=== PATIENT | female | born 1955 | race American Indian/Alaskan Native ===

== ENCOUNTER 2016-12-12 17:19 | Emergency (ER) | payer MEDICAID ==
--- NOTE | 2016-12-12 18:56 | Cat Scan Report ---
FINAL REPORT EXAM: CT HEAD/BRAIN WO CON HISTORY: head injury TECHNIQUE: CT examination of the head without IV contrast PRIORS: None. FINDINGS: No acute air-fluid level visualized in the included air-filled sinuses. Bone windows demonstrate no acute fracture. The brain is without mass, mass effect, hemorrhage, or acute infarct. There is no extra-axial intracranial bleed, brain bleed, or midline shift. The ventricles and sulci are age-appropriate. IMPRESSION: No acute CVA, intracranial bleed, or brain mass
[2016-12-12 19:27] LABS: Bilirubin,Urine NEG (Negative); Blood,Urine NEG (Negative); Ketones,Urine NEG (Negative); Leukocyte Esterase,Urine NEG (Negative); Nitrite,Urine NEG (Negative); Protein,Urine <15 mg/dL mg/dL (Negative); WBC,Urine < 1.0 /HPF (0.0-6.0)
[2016-12-12 19:47] LABS: Basophils % (Auto) 0.6 % (0.0-1.8); Eosinophils % (Auto) 2.1 % (0.0-4.3); Hematocrit 47.2 % (30.3-42.9); Hemoglobin 15.6 gm/dl (10.1-14.3); Mean Corpuscular HGB Conc 33 % (30-34); Mean Corpuscular Hemoglobin 30 pg (28-32); Mean Corpuscular Volume 91 fl (79-97); Platelet Count 221 K/mm3 (140-440); Red Blood Count 5.17 M/mm3 (3.65-5.03); Red Cell Distribution Width 14.3 % (13.2-15.2); White Blood Count 10.9 K/mm3 (4.5-11.0)
[2016-12-12 20:07] LABS: Alanine Aminotransferase 11 units/L (7-56); Albumin 4.4 g/dL (3.9-5); Albumin/Globulin Ratio 1.5 %; Alkaline Phosphatase 95 units/L (35-129); Anion Gap 16 mmol/L; BUN/Creatinine Ratio 22; Blood Urea Nitrogen 13 mg/dL (7-17); Calcium 9.7 mg/dL (8.4-10.2); Carbon Dioxide 27 mmol/L (22-30); Chloride 103.5 mmol/L (98-107); Glucose 93 mg/dL (65-100); Potassium 4.3 mmol/L (3.6-5.0); Sodium 142 mmol/L (137-145); Total Protein 7.4 g/dL (6.3-8.2)
[2016-12-12] MEDS ORDERED: TORADOL IM ONE (21:35)
[2016-12-12] MEDS ORDERED: ROBAXIN PO ONE (22:00)
--- NOTE | 2016-12-12 23:06 | Emergency Department Report ---
ED Fall HPI - General Chief Complaint: Fall Stated Complaint: HIP PAIN Time Seen by Provider: 12/12/16 20:43 Source: patient Mode of arrival: Stretcher - History of Present Illness Initial Comments: This 61-year-old female presents to ER with complaints of falling. This happened yesterday and today. She says her right hip give out on her and she fell to the ground. She struck the back of her head, no LOC. Patient has history of asthma, history of cancer of her uterus. She is a chronic smoker, I counseled her about smoking cessation. MD Complaint: fall -: Sudden (she fell yesterday and she also felt today just prior to arrival) Fall From: standing (walking) When Fall Occurred: recurrent falls Fall Witnessed: no Place Fall Occurred: home Loss of Consciousness: none Prolonged Down Time?: no Symptoms Prior to Fall: other (her right hip felt weak and unable to bear her weight so she fell) Location: head, other (right hip) Location - Extremities: Right: Leg (right hip) Severity: moderate Severity scale (0 -10): 8 Quality: aching Associated Symptoms: headache, weakness, shortness of breath. denies: numbness , abdominal pain, hematuria, lightheaded, confusion - Related Data Previous Rx's Medication Instructions Recorded Last Taken Type Diclofenac Potassium [Cambia] 50 mg PO TID #21 powd.pack 12/13/16 Unknown Rx Methocarbamol [Robaxin-750] 1,500 mg PO TID #30 tablet 12/13/16 Unknown Rx traMADol [Ultram] 50 mg PO Q6HR PRN #12 tablet 12/13/16 Unknown Rx Allergies Allergy/AdvReac Type Severity Reaction Status Date / Time codeine Allergy Hives Verified 12/12/16 18:04 ED Review of Systems ROS: Stated complaint: HIP PAIN Other details as noted in HPI Comment: All other systems reviewed and negative Constitutional: see HPI, weakness. denies: chills, diaphoresis, fever, malaise Eyes: denies: eye pain, eye discharge, vision change ENT: denies: ear pain, throat pain, dental pain, hearing loss Respiratory: cough (history of asthma, patient also smokes), shortness of breath Cardiovascular: denies: chest pain, palpitations, dyspnea on exertion, edema, syncope, paroxysmal nocturnal dyspnea Endocrine: no symptoms reported Gastrointestinal: denies: abdominal pain, nausea, vomiting, diarrhea, constipation, hematemesis Genitourinary: denies: dysuria, frequency, hematuria Musculoskeletal: as per HPI, other (right hip joint pain) Skin: denies: change in color, change in hair/nails, pruritus Neurological: weakness ED Past Medical Hx - Past Medical History Previous Medical History?: Yes Hx Asthma: Yes Hx COPD: Yes Additional medical history: pacer - Surgical History Past Surgical History?: Yes Hx Pacemaker: Yes - Social History Smoking Status: Never Smoker Substance Use Type: None - Medications Home Medications: Home Medications Medication Instructions Recorded Confirmed Last Taken Type Diclofenac Potassium [Cambia] 50 mg PO TID #21 powd.pack 12/13/16 Unknown Rx Methocarbamol [Robaxin-750] 1,500 mg PO TID #30 tablet 12/13/16 Unknown Rx traMADol [Ultram] 50 mg PO Q6HR PRN #12 tablet 12/13/16 Unknown Rx ED Physical Exam - General Limitations: No Limitations General appearance: in distress (moderate distress) - Head Head exam: Present: atraumatic, normocephalic - Eye Eye exam: Present: normal appearance, PERRL, EOMI. Absent: scleral icterus, conjunctival injection, nystagmus - ENT ENT exam: Present: normal exam, normal orophraynx, mucous membranes moist - Neck Neck exam: Present: normal inspection, full ROM. Absent: tenderness, meningismus, lymphadenopathy - Respiratory Respiratory exam: Present: normal lung sounds bilaterally. Absent: respiratory distress, wheezes, rales, rhonchi, stridor, chest wall tenderness, accessory muscle use, decreased breath sounds, prolonged expiratory - Cardiovascular Cardiovascular Exam: Present: regular rate, normal heart sounds. Absent: normal rhythm, bradycardia, tachycardia, systolic murmur, diastolic murmur, rubs - GI/Abdominal GI/Abdominal exam: Present: soft, normal bowel sounds. Absent: distended, tenderness, guarding, diminished bowel sounds, hyperactive bowel sounds, hypoactive bowel sounds, organomegaly - Rectal Rectal exam: Present: deferred - Expanded Lower Extremity Exam Right Hip exam: Present: normal inspection, tenderness. Absent: full ROM, swelling, abrasion, ecchymosis, deformity, crepidus, dislocation, erythema, external rotation, internal rotation, shortening, pelvic stability Upper Leg exam: Present: normal inspection. Absent: full ROM, tenderness, swelling, abrasion, laceration, ecchymosis, deformity, crepidus, dislocation Knee exam: Present: normal inspection, full ROM, full knee extension. Absent: tenderness, swelling, abrasion, laceration, ecchymosis, deformity, crepidus, dislocation, erythema, effusion, pain w/ pronation/supination, posterior draw sign, pain/laxity with valgus, pain/laxity with varus Lower Leg exam: Present: normal inspection, full ROM. Absent: tenderness, swelling, laceration, ecchymosis, deformity, crepidus Ankle exam: Present: normal inspection, full ROM. Absent: tenderness, abrasion , laceration, ecchymosis Foot/Toe exam: Present: normal inspection, full ROM. Absent: tenderness, swelling, abrasion, laceration, ecchymosis, dislocation, erythema, amputation, puncture wound Neuro vascular tendon exam: Present: no vascular compromise. Absent: pulse deficit, abnormal cap refill, motor deficit, sensory deficit, tendon deficit - Back Exam Back exam: Present: normal inspection, full ROM. Absent: tenderness, CVA tenderness (L), muscle spasm, paraspinal tenderness - Neurological Exam Neurological exam: Present: alert, oriented X3, CN II-XII intact, motor sensory deficit ED Course Vital Signs 12/12/16 12/12/16 12/12/16 18:04 19:12 19:15 Temperature 98.4 F Pulse Rate 70 Respiratory 16 Rate Blood Pressure 146/94 O2 Sat by Pulse 95 96 97 Oximetry 12/12/16 12/12/16 12/12/16 19:31 19:45 20:01 Temperature Pulse Rate Respiratory Rate Blood Pressure O2 Sat by Pulse 96 96 85 Oximetry 12/12/16 12/12/16 12/12/16 20:15 20:31 20:45 Temperature Pulse Rate Respiratory Rate Blood Pressure O2 Sat by Pulse 95 95 97 Oximetry 12/12/16 12/12/16 12/12/16 21:01 21:15 21:31 Temperature Pulse Rate Respiratory Rate Blood Pressure O2 Sat by Pulse 94 97 97 Oximetry 12/12/16 12/12/16 12/12/16 21:45 22:01 22:15 Temperature Pulse Rate Respiratory Rate Blood Pressure O2 Sat by Pulse 96 95 95 Oximetry 12/12/16 12/12/16 12/12/16 22:31 22:45 23:00 Temperature Pulse Rate Respiratory Rate Blood Pressure 119/82 133/81 O2 Sat by Pulse 97 97 93 Oximetry 12/12/16 23:15 Temperature Pulse Rate Respiratory Rate Blood Pressure 133/81 O2 Sat by Pulse 96 Oximetry ED Medical Decision Making - Lab Data Result diagrams: 12/12/16 19:31 12/12/16 19:31 - Radiology Data Radiology results: report reviewed, image reviewed Critical Care Time: No Critical care attestation.: If time is entered above; I have spent that time in minutes in the direct care of this critically ill patient, excluding procedure time. ED Disposition Clinical Impression: Fall, Hip pain, right Disposition: - TO HOME OR SELFCARE Is pt being admited?: No Does the pt Need Aspirin: No Condition: Stable Instructions: Fall Prevention (ED), Arthralgia (ED) Additional Instructions: Floor with her primary care. Use a walker to assist your gait Prescriptions: Diclofenac Potassium [Cambia] 50 mg PO TID #21 powd.pack Methocarbamol [Robaxin-750] 1,500 mg PO TID #30 tablet traMADol [Ultram] 50 mg PO Q6HR PRN #12 tablet PRN Reason: Pain Referrals: PRIMARY CARE,MD [Primary Care Provider] - 3-5 Days Time of Disposition: 00:26
[2016-12-12 23:19] VITALS: BP 133/81
--- NOTE | 2016-12-13 10:16 | XRay Report ---
PORTABLE CHEST INDICATION: Cough. COMPARISON: None similar. FINDINGS: Portable, frontal chest radiographs, 2 images demonstrate a 1.7 x 1.1 cm ovoid soft tissue density in the left lower lung, projecting along the left heart border. Otherwise clear, hyperexpanded lungs. Normal cardiomediastinal silhouette. Left-sided pacemaker with dual-chamber leads. Intact bones. CONCLUSION: Left lower lung mass/nodule in this patient with possible COPD and left-sided pacemaker, as described. Direct comparison with prior chest imaging would be helpful, if available. Otherwise further evaluation with contrast enhanced chest CT recommended as neoplasm not excluded. Thank you for the opportunity to participate in this patient's care.
--- NOTE | 2016-12-13 12:02 | XRay Report ---
RIGHT HIP, 2 views: History: Right hip pain. The bony architecture is intact without evidence of fracture or dislocation. No significant soft tissue abnormality is seen. IMPRESSION: Right hip within normal limits.
== END 2016-12-13 00:35 | disposition home or self-care (01) ==
LOC: ED 17:19
DX: M25.551 Pain in right hip (principal); J45.909 Unspecified asthma, uncomplicated; H44.9 Unspecified disorder of globe
CPT/HCPCS: 36415; 70450; 71010; 73502; 80053; 81001; 85025; 96372; 99285; J1885

== ENCOUNTER 2016-12-23 14:25 | Emergency (ER) | payer MEDICAID ==
--- NOTE | 2016-12-23 14:55 | Emergency Department Report ---
Chief Complaint: Dyspnea/Respdistress Stated Complaint: CALL BACK/SOB - HPI History of Present Illness: 61 year old female presents to ED with abnormal CXR. patient states she was called back to ED from previous visit for abnormal CXR. patient states she previously came to ED 2 weeks ago for SOB. patient is stable, neurologically intact and in no acute distress. - ROS Review of Systems: see HPI - Exam Vital Signs: Vital Signs 12/23/16 14:40 Temperature 97.4 F L Pulse Rate 78 Respiratory 18 Rate Blood Pressure 139/96 O2 Sat by Pulse 97 Oximetry Physical Exam: General: no acute distress MSE screening note: Focused history and physical exam performed. Due to findings the following was ordered: CT chest with contrast per radiologist due to abnormal CXR labs EKG ED Medical Decision Making - Radiology Data Radiology results: pending - Medical Decision Making patient is stable, neurologically intact and in no acute distress. ED Disposition for MSE Condition: Stable
[2016-12-23 15:32] LABS: Anion Gap 19 mmol/L; BUN/Creatinine Ratio 13; Basophils % (Auto) 0.4 % (0.0-1.8); Blood Urea Nitrogen 9 mg/dL (7-17); Carbon Dioxide 23 mmol/L (22-30); Chloride 104.3 mmol/L (98-107); Eosinophils % (Auto) 2.3 % (0.0-4.3); Glucose 79 mg/dL (65-100); Hematocrit 45.9 % (30.3-42.9); Hemoglobin 15.5 gm/dl (10.1-14.3); Mean Corpuscular HGB Conc 34 % (30-34); Mean Corpuscular Hemoglobin 31 pg (28-32); Mean Corpuscular Volume 91 fl (79-97); Platelet Count 217 K/mm3 (140-440); Potassium 4.1 mmol/L (3.6-5.0); Red Blood Count 5.04 M/mm3 (3.65-5.03); Red Cell Distribution Width 14.4 % (13.2-15.2); Sodium 142 mmol/L (137-145); White Blood Count 9.8 K/mm3 (4.5-11.0)
--- NOTE | 2016-12-23 15:54 | XRay Report ---
CHEST 2 VIEWS INDICATION: Previous abnormal x-ray. Left lower lung nodule. COMPARISON: 12/12/2016 FINDINGS: PA and lateral chest radiographs again demonstrate approximately 1.5 x 1 cm left lower lung nodule projecting along the left heart border on the frontal view, possibly located within the lingula on the lateral projection. Hyperexpanded clear remainder lungs/COPD. No pleural effusions or CHF. Normal cardiomediastinal silhouette. Slight aortic knob calcifications. Stable left pacemaker with dual-chamber leads. Osteopenia. CONCLUSION: Left lower lung mass/nodule again noted in this patient with COPD and left sided pacemaker, as described. Direct comparison with more remote relevant imaging, if available, would be very helpful. Thank you for the opportunity to participate in this patient's care.
[2016-12-23] MEDS ORDERED: NACL ONE (15:56)
--- NOTE | 2016-12-23 21:30 | Emergency Department Report ---
ED General Adult HPI - General Chief complaint: Dyspnea/Respdistress Stated complaint: CALL BACK/SOB Time Seen by Provider: 12/23/16 20:20 Source: patient Mode of arrival: Ambulatory Limitations: Physical Limitation - History of Present Illness Initial comments: Pt is a 61 yo female her for a call back for an abnormal chest xray 2 weeks . Pt states she is a former smoker of 40 pack yrs and pt states she stopped drinking alcohol 10 yrs ago. Pt states she has been coughing. Pt denied any weight loss or night sweats. Pt states she has not had fever. Pt has a pacemaker. Severity scale (0 -10): 8 Improves with: none Associated Symptoms: denies other symptoms - Related Data Home Medications Medication Instructions Recorded Confirmed Last Taken Losartan [Cozaar] 100 mg PO QDAY 12/23/16 12/23/16 12/23/16 Allergies Allergy/AdvReac Type Severity Reaction Status Date / Time codeine Allergy Hives Verified 12/12/16 18:04 ED Review of Systems ROS: Stated complaint: CALL BACK/SOB Other details as noted in HPI Eyes: denies: eye pain, eye discharge, vision change ENT: denies: ear pain, throat pain Respiratory: cough Cardiovascular: denies: chest pain, palpitations Endocrine: no symptoms reported Gastrointestinal: denies: abdominal pain Musculoskeletal: denies: back pain, joint swelling, arthralgia Skin: as per HPI ED Past Medical Hx - Past Medical History Previous Medical History?: Yes Hx Asthma: Yes Hx COPD: Yes Additional medical history: pacer - Surgical History Past Surgical History?: Yes Hx Pacemaker: Yes Additional Surgical History: Hysterectomy - Social History Smoking Status: Current Every Day Smoker Substance Use Type: Prescribed - Medications Home Medications: Home Medications Medication Instructions Recorded Confirmed Last Taken Type Losartan [Cozaar] 100 mg PO QDAY 12/23/16 12/23/16 12/23/16 History ED Physical Exam - General Limitations: Physical Limitation General appearance: alert - Head Head exam: Present: atraumatic, normocephalic - Eye Eye exam: Present: normal appearance - ENT ENT exam: Present: mucous membranes moist - Neck Neck exam: Present: normal inspection - Respiratory Respiratory exam: Present: normal lung sounds bilaterally. Absent: respiratory distress - Cardiovascular Cardiovascular Exam: Present: regular rate, normal rhythm. Absent: systolic murmur, diastolic murmur, rubs, gallop - GI/Abdominal GI/Abdominal exam: Present: soft, normal bowel sounds - Neurological Exam Neurological exam: Present: alert, oriented X3, CN II-XII intact, normal gait - Skin Skin exam: Present: other (left chest wall with implanted pacer device) ED Course Vital Signs 12/23/16 12/23/16 12/23/16 14:40 19:46 20:00 Temperature 97.4 F L 98 F Pulse Rate 78 81 72 Respiratory 18 16 18 Rate Blood Pressure 139/96 Blood Pressure 138/98 126/80 [Right] O2 Sat by Pulse 97 98 98 Oximetry 12/23/16 12/23/16 21:00 22:35 Temperature Pulse Rate 61 70 Respiratory 18 20 Rate Blood Pressure Blood Pressure 142/89 135/76 [Right] O2 Sat by Pulse 98 98 Oximetry ED Medical Decision Making - Lab Data Result diagrams: 12/23/16 14:59 12/23/16 14:59 Critical care attestation.: If time is entered above; I have spent that time in minutes in the direct care of this critically ill patient, excluding procedure time. ED Disposition Clinical Impression: Abnormal chest xray, Bone island Disposition: DC-01 TO HOME OR SELFCARE Is pt being admited?: No Condition: Stable Additional Instructions: be sure to follow up with a primary care doctor; return sooner if worse or if further concerns; you will need further eval of your liver Referrals: JOSH THOMAS MD [Staff Physician] - 3-5 Days PRIMARY CARE, [Primary Care Provider] - 3-5 Days
--- NOTE | 2016-12-23 21:37 | Cat Scan Report ---
FINAL REPORT PROCEDURE: CT CHEST W CON TECHNIQUE: Computerized axial tomography of the chest was performed during the IV injection of iodinated nonionic contrast. HISTORY: abnormal CXR COMPARISON: No prior studies are available for comparison. TECHNICAL QUALITY: Satisfactory. FINDINGS: Heart and pericardium: Normal. Thoracic aorta: Normal. Pulmonary vasculature: Normal. Lymph nodes: No enlarged thoracic lymph nodes. Lungs: Normal. Pleural space: No effusion, thickening, or pneumothorax. Musculoskeletal structures: A well-defined the sclerotic density measuring 6 millimeters x 12 millimeters is noted in the anterior and of left 6th rib consistent with a bone island.. Upper abdominal structures: There is mild degree nodularity to the hepatic outlines.. IMPRESSION: No acute abnormality. A 6 millimeter x 12 millimeter sclerotic density in the anterior end of left 6th rib is consistent with a bone island. Mild degree nodularity of the outlines of liver is noted. Please correlate with clinical findings to rule out cirrhosis.
[2016-12-24 00:23] VITALS: BP 135/76
== END 2016-12-23 23:18 | disposition home or self-care (01) ==
LOC: ED 14:25
DX: A75.3 Typhus fever due to Rickettsia tsutsugamushi (principal); J45.909 Unspecified asthma, uncomplicated; J44.9 Chronic obstructive pulmonary disease, unspecified; F17.200 Nicotine dependence, unspecified, uncomplicated
CPT/HCPCS: 36415; 71020; 71260; 80048; 84484; 85025; 93005; 93010; 99284; Q9967

== ENCOUNTER 2017-01-25 13:00 | Emergency (ER) | payer MEDICAID ==
[2017-01-25 14:35] LABS: Basophils % (Auto) 0.4 % (0.0-1.8); Eosinophils % (Auto) 3.3 % (0.0-4.3); Hematocrit 45.5 % (30.3-42.9); Hemoglobin 15.6 gm/dl (10.1-14.3); Mean Corpuscular HGB Conc 34 % (30-34); Mean Corpuscular Hemoglobin 31 pg (28-32); Mean Corpuscular Volume 90 fl (79-97); Platelet Count 261 K/mm3 (140-440); Red Blood Count 5.04 M/mm3 (3.65-5.03); White Blood Count 10.1 K/mm3 (4.5-11.0)
[2017-01-25 14:36] LABS: Anion Gap 17 mmol/L; BUN/Creatinine Ratio 13; Blood Urea Nitrogen 9 mg/dL (7-17); Calcium 9.7 mg/dL (8.4-10.2); Carbon Dioxide 25 mmol/L (22-30); Chloride 102.6 mmol/L (98-107); Glucose 90 mg/dL (65-100); Potassium 4.1 mmol/L (3.6-5.0); Sodium 140 mmol/L (137-145)
--- NOTE | 2017-01-25 14:48 | XRay Report ---
FINAL REPORT PROCEDURE: XR CHEST ROUTINE 2V TECHNIQUE: PA and lateral views HISTORY: sob/cough COMPARISON: Contrast-enhanced CT of the chest 12/23/2016 FINDINGS: Radiodensity projecting over left lower lobe is likely sclerosis previously noted on CT of the anterior left 6th rib. Emphysema is noted. There is an intracardiac device in place. The heart is normal in size. There is no evident pneumothorax or pleural fluid. Mild degenerative changes of the dorsal spine without focal bony abnormality is seen. IMPRESSION: Pulmonary emphysema.
[2017-01-25 15:28] LABS: Bilirubin,Urine NEG (Negative); Blood,Urine NEG (Negative); Ketones,Urine NEG (Negative); Leukocyte Esterase,Urine TR (Negative); Mucus,Urine FEW /HPF; Nitrite,Urine NEG (Negative); Protein,Urine <15 mg/dL mg/dL (Negative); Urobilinogen,Urine < 2.0 mg/dL (<2.0)
[2017-01-25] MEDS ORDERED: PROVENTIL IH ONE (19:38)
[2017-01-25] MEDS ORDERED: LIDOCAINE VISCOUS 2% PO ONE (22:22)
[2017-01-25] MEDS ORDERED: TYLENOL PO ONE (22:22)
[2017-01-25] MEDS ORDERED: MOTRIN PO ONE (22:22)
--- NOTE | 2017-01-25 22:31 | Emergency Department Report ---
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 Patient reports pacemaker is placed 6 months ago at another hospital secondary to "slow heart rate." Patient presents to the ER with complaint of throat pain, left-sided neck pain, adenopathy, cough, mucus production. Patient also complains of generalized body aches, myalgias and arthralgias. Symptoms have been present for 3 days. They're constant. They do not radiate anywhere. They have no exacerbating or relieving factors. Patient denies DVT and pulmonary embolus risk factors. MD Complaint: cough, sore throat, rhinorrhea, nasal congestion, sinus pain -: Gradual, days(s) Consistency: constant Improves With: nothing Worsens With: nothing Associated Symptoms: myalgias, rhinorrhea, nasal congestion, sore throat, cough , shortness of breath. denies: chest pain, abdominal pain, nausea, vomiting, diarrhea, dysuria, rash, confusion, right sweats, weight loss, epistaxis, hoarseness - Related Data Home Medications Medication Instructions Recorded Confirmed Last Taken Losartan [Cozaar] 100 mg PO QDAY 12/23/16 12/23/16 12/23/16 Previous Rx's Medication Instructions Recorded Last Taken Type Acetaminophen [Tylenol Arthritis] 650 mg PO Q6HR PRN #30 tablet.er 01/25/17 Unknown Rx Albuterol Sulfate [Proair 90 mcg IH Q4HR PRN #2 aer.pow.ba 01/25/17 Unknown Rx Respiclick] Benzonatate [Tessalon Perles] 100 mg PO Q8HR PRN #30 capsule 01/25/17 Unknown Rx Fluticasone [Flonase] 1 spray NS QDAY #1 bottle 01/25/17 Unknown Rx Ibuprofen [Motrin] 600 mg PO Q8H PRN #30 tablet 01/25/17 Unknown Rx Ipratropium [place] [Atrovent Hfa] 12.9 gm IH Q4HR #2 hfa.aer.ad 01/25/17 Unknown Rx Allergies Allergy/AdvReac Type Severity Reaction Status Date / Time codeine Allergy Hives Verified 12/12/16 18:04 ED Review of Systems ROS: Stated complaint: SORE THROAT Other details as noted in HPI ED Past Medical Hx - Past Medical History Hx Asthma: Yes Hx COPD: Yes Additional medical history: pacer - Surgical History Hx Pacemaker: Yes Additional Surgical History: Hysterectomy - Social History Smoking Status: Former Smoker - Medications Home Medications: Home Medications Medication Instructions Recorded Confirmed Last Taken Type Losartan [Cozaar] 100 mg PO QDAY 12/23/16 12/23/16 12/23/16 History Acetaminophen [Tylenol Arthritis] 650 mg PO Q6HR PRN #30 tablet.er 01/25/17 Unknown Rx Albuterol Sulfate [Proair 90 mcg IH Q4HR PRN #2 aer.pow.ba 01/25/17 Unknown Rx Respiclick] Benzonatate [Tessalon Perles] 100 mg PO Q8HR PRN #30 capsule 01/25/17 Unknown Rx Fluticasone [Flonase] 1 spray NS QDAY #1 bottle 01/25/17 Unknown Rx Ibuprofen [Motrin] 600 mg PO Q8H PRN #30 tablet 01/25/17 Unknown Rx Ipratropium [place] [Atrovent Hfa] 12.9 gm IH Q4HR #2 hfa.aer.ad 01/25/17 Unknown Rx ED Physical Exam - General Limitations: No Limitations General appearance: alert, in no apparent distress - Head Head exam: Present: atraumatic, normocephalic - Eye Eye exam: Present: normal appearance, PERRL, EOMI. Absent: nystagmus - ENT ENT exam: Present: normal exam, normal orophraynx, mucous membranes moist, TM's normal bilaterally, normal external ear exam - Neck Neck exam: Present: normal inspection, full ROM, lymphadenopathy. Absent: tenderness, meningismus - Respiratory Respiratory exam: Present: normal lung sounds bilaterally. Absent: respiratory distress, wheezes, rales, rhonchi, stridor, chest wall tenderness - Cardiovascular Cardiovascular Exam: Present: regular rate, normal rhythm, normal heart sounds. Absent: systolic murmur, diastolic murmur, rubs, gallop - GI/Abdominal GI/Abdominal exam: Present: soft, normal bowel sounds. Absent: distended, tenderness, guarding, rebound, rigid, pulsatile mass - Extremities Exam Extremities exam: Present: normal inspection, full ROM, normal capillary refill. Absent: pedal edema, joint swelling, calf tenderness - Back Exam Back exam: Present: normal inspection, full ROM. Absent: tenderness, CVA tenderness (R), paraspinal tenderness, vertebral tenderness - Neurological Exam Neurological exam: Present: alert, oriented X3, CN II-XII intact, other ( Extraocular movements intact. Tongue midline. No facial droop. Facial sensation intact to light touch in the V1, V2, V3 distribution bilaterally. 5 and 5 strength in 4 extremities.. Sensation is intact to light touch in 4 extremities.). Absent: motor sensory deficit - Psychiatric Psychiatric exam: Present: normal affect, normal mood - Skin Skin exam: Present: warm, dry, intact, normal color. Absent: rash ED Course Vital Signs 01/25/17 01/25/17 01/25/17 13:20 19:33 19:59 Temperature 98.4 F 98.2 F Pulse Rate 94 H 89 Pulse Rate [ 78 Anterior Bilateral Throughout] Respiratory 24 14 Rate Respiratory 19 Rate [Anterior Bilateral Throughout] Blood Pressure 113/82 126/89 O2 Sat by Pulse 93 95 Oximetry 01/25/17 20:16 Temperature Pulse Rate Pulse Rate [ 89 Anterior Bilateral Throughout] Respiratory Rate Respiratory 18 Rate [Anterior Bilateral Throughout] Blood Pressure O2 Sat by Pulse Oximetry ED Medical Decision Making - Lab Data Result diagrams: 01/25/17 13:56 01/25/17 13:56 Vital Signs 01/25/17 01/25/17 01/25/17 13:20 19:33 19:59 Temperature 98.4 F 98.2 F Pulse Rate 94 H 89 Pulse Rate [ 78 Anterior Bilateral Throughout] Respiratory 24 14 Rate Respiratory 19 Rate [Anterior Bilateral Throughout] Blood Pressure 113/82 126/89 O2 Sat by Pulse 93 95 Oximetry 01/25/17 20:16 Temperature Pulse Rate Pulse Rate [ 89 Anterior Bilateral Throughout] Respiratory Rate Respiratory 18 Rate [Anterior Bilateral Throughout] Blood Pressure O2 Sat by Pulse Oximetry Lab Results 01/25/17 01/25/17 01/25/17 Range/Units 13:56 13:56 15:12 WBC 10.1 (4.5-11.0) K/mm3 RBC 5.04 H (3.65-5.03) M/mm3 Hgb 15.6 H (10.1-14.3) gm/dl Hct 45.5 H (30.3-42.9) % MCV 90 (79-97) fl MCH 31 (28-32) pg MCHC 34 (30-34) % RDW 14.0 (13.2-15.2) % Plt Count 261 (140-440) K/mm3 Lymph % (Auto) 18.7 (13.4-35.0) % [place]aines % (Auto) 5.4 (0.0-7.3) % Eos % (Auto) 3.3 (0.0-4.3) % Baso % (Auto) 0.4 (0.0-1.8) % Lymph # 1.9 (1.2-5.4) K/mm3 Haines # 0.5 (0.0-0.8) K/mm3 Eos # 0.3 (0.0-0.4) K/mm3 Baso # 0.0 (0.0-0.1) K/mm3 Seg Neutrophils % 72.2 H (40.0-70.0) % Seg Neutrophils # 7.3 (1.8-7.7) K/mm3 Sodium 140 (137-145) mmol/L Potassium 4.1 (3.6-5.0) mmol/L Chloride 102.6 (98-107) mmol/L Carbon Dioxide 25 (22-30) mmol/L Anion Gap 17 mmol/L BUN 9 (7-17) mg/dL Creatinine 0.7 (0.7-1.2) mg/dL Estimated GFR > 60 ml/min BUN/Creatinine Ratio 13 % Glucose 90 (65-100) mg/dL Calcium 9.7 (8.4-10.2) mg/dL Urine Color Yellow (Yellow) Urine Turbidity Clear (Clear) Urine pH 5.0 (5.0-7.0) Ur Specific [place] 1.015 (1.003-1.030) Urine Protein <15 mg/dl (Negative) mg/dL Urine Glucose (UA) Neg (Negative) mg/dL Urine Ketones Neg (Negative) mg/dL Urine Blood Neg (Negative) Urine Nitrite Neg (Negative) Urine Bilirubin Neg (Negative) Urine Urobilinogen < 2.0 (<2.0) mg/dL Ur Leukocyte Esterase Tr (Negative) Urine WBC (Auto) 1.0 (0.0-6.0) /HPF Urine RBC (Auto) 1.0 (0.0-6.0) /HPF U Epithel Cells (Auto) 4.0 (0-13.0) /HPF Urine Mucus Few /HPF - Radiology Data Radiology results: report reviewed, image reviewed X-ray of the chest is negative for acute disease, left-sided cardiac pacer is noted, hyperinflated lungs, no acute disease - Medical Decision Making Differential diagnosis, including without limited to: Bronchitis, pneumonia, influenza, influenza-like illness, COPD, asthma Assessment and plan: 61-year-old female with adenopathy, cough, sore throat, right-sided otalgia, resolved wheezing, mucus production Patient's history physical most likely consistent with bronchitis. She is not wheezing at this time. No pulmonary embolus or DVT risk factors. She is saturating well and protecting her airway and able to tolerate liquid feeds. Patient will be treated expectantly for bronchitis. Given that she is not wheezing at this time, I see no indication for steroids. Given x-ray findings, and lack of focal pulmonary findings, I don't believe the patient requires antibiotic therapy. Critical care attestation.: If time is entered above; I have spent that time in minutes in the direct care of this critically ill patient, excluding procedure time. ED Disposition Clinical Impression: Bronchitis Disposition: DC-01 TO HOME OR SELFCARE Is pt being admited?: No Does the pt Need Aspirin: No Condition: Stable Instructions: Acute Bronchitis (ED) Additional Instructions: Take the medications as directed. Follow up with her primary care doctor within the next [address] Emmanuel is a local primary care doctor. Avoid exposure to tobacco smoke and tobacco consumption. Follow up with the pulmonary /lung doctor within the next 4-[address] Lee is a local pulmonary doctor. Follow up with a bridge expert within the next 4-[address] Biggs is a local heart doctor. Symptoms of bronchitis, which I believe you have, typically take 4-6 weeks to completely resolve. Return to the ER right away with new pain, worsened pain, migration of pain, fevers, chills, lethargy, irritability, projectile vomiting, confusion, change in mental status, inability to tolerate liquid feeds. Referrals: PRIMARY CARE, [Primary Care Provider] - 3-5 Days LAKSHMI EMMANUEL MD [Staff Physician] - 3-5 Days DICKSON BIGGS MD [Staff Physician] - 3-5 Days CARIE BORGES MD [Staff Physician] - 3-5 Days
[2017-01-25] MEDS ORDERED: TESSALON PERLES PO ONE (22:49)
[2017-01-25 22:59] VITALS: BP 114/53
== END 2017-01-25 23:01 | disposition home or self-care (01) ==
LOC: ED 13:00
DX: J44.9 Chronic obstructive pulmonary disease, unspecified (principal); Z90.710 Acquired absence of both cervix and uterus; Z87.891 Personal history of nicotine dependence; Z88.5 Allergy status to narcotic agent
CPT/HCPCS: 36415; 71020; 80048; 81001; 85025; 87400; 94640

== ENCOUNTER 2017-05-10 10:29 | Emergency (ER) | payer MEDICAID ==
[2017-05-10 10:35] VITALS: BP 148/98
--- NOTE | 2017-05-10 13:05 | XRay Report ---
XRAY RIGHT HIP TWO VIEWS: 05/10/17 10:29:00 CLINICAL: Fall and right hip pain. COMPARISON 12/12/16 FINDINGS: No fracture or dislocation.Moderate osteoarthritis with narrowing of the superolateral joint space and superior acetabular eburnation. Small superior and inferior osteophytes. The pelvic bones are intact. Mild arthritis of the left hip. Normal soft tissues. IMPRESSION: Osteoarthritis and no apparent traumatic injury.
--- NOTE | 2017-05-10 13:12 | Emergency Department Report ---
ED Fall HPI - General Chief Complaint: Pain General Stated Complaint: RIGHT SIDE PAIN Time Seen by Provider: 05/10/17 11:16 Source: patient Mode of arrival: Ambulatory - History of Present Illness Initial Comments: Mrs. Rico is a 59-year-old female presents with a history of recurrent falls for the last 3 years. She uses a cane for gait instability. She fell 1-1/2 weeks ago onto her left side. She has right flank right hip pain. Worse with movement. Worse to touch. No numbness. No paresthesias. MD Complaint: fall -: week(s) (1.5) Fall From: standing When Fall Occurred: recurrent falls Fall Witnessed: no Place Fall Occurred: home Loss of Consciousness: none Prolonged Down Time?: no Symptoms Prior to Fall: none Location - Extremities: Right: Leg Severity: severe Context: tripped/slipped - Related Data Home Medications Medication Instructions Recorded Confirmed Last Taken Losartan [Cozaar] 100 mg PO QDAY 12/23/16 12/23/16 12/23/16 Previous Rx's Medication Instructions Recorded Last Taken Type Acetaminophen [Tylenol Arthritis] 650 mg PO Q6HR PRN #30 tablet.er 01/25/17 Unknown Rx Albuterol Sulfate [Proair 90 mcg IH Q4HR PRN #2 aer.pow.ba 01/25/17 Unknown Rx Respiclick] Benzonatate [Tessalon Perles] 100 mg PO Q8HR PRN #30 capsule 01/25/17 Unknown Rx Fluticasone [Flonase] 1 spray NS QDAY #1 bottle 01/25/17 Unknown Rx Ibuprofen [Motrin] 600 mg PO Q8H PRN #30 tablet 01/25/17 Unknown Rx Ipratropium [place] [Atrovent Hfa] 12.9 gm IH Q4HR #2 hfa.aer.ad 01/25/17 Unknown Rx HYDROcodone/APAP 5-325 [[place] 1 each PO Q6HR PRN #10 tablet 05/10/17 Unknown Rx 5/325] Allergies Allergy/AdvReac Type Severity Reaction Status Date / Time codeine Allergy Hives Verified 12/12/16 18:04 ED Review of Systems ROS: Stated complaint: RIGHT SIDE PAIN Other details as noted in HPI Constitutional: denies: chills, fever, malaise ENT: denies: throat pain Respiratory: denies: cough Cardiovascular: denies: chest pain Gastrointestinal: denies: abdominal pain, nausea, vomiting Genitourinary: denies: urgency, dysuria Neurological: denies: headache, weakness, paresthesias ED Past Medical Hx - Past Medical History Hx Asthma: Yes Hx COPD: Yes Additional medical history: pacer - Surgical History Hx Pacemaker: Yes Additional Surgical History: Hysterectomy - Social History Smoking Status: Never Smoker Substance Use Type: None - Medications Home Medications: Home Medications Medication Instructions Recorded Confirmed Last Taken Type Losartan [Cozaar] 100 mg PO QDAY 12/23/16 12/23/16 12/23/16 History Acetaminophen [Tylenol Arthritis] 650 mg PO Q6HR PRN #30 tablet.er 01/25/17 Unknown Rx Albuterol Sulfate [Proair 90 mcg IH Q4HR PRN #2 aer.pow.ba 01/25/17 Unknown Rx Respiclick] Benzonatate [Tessalon Perles] 100 mg PO Q8HR PRN #30 capsule 01/25/17 Unknown Rx Fluticasone [Flonase] 1 spray NS QDAY #1 bottle 01/25/17 Unknown Rx Ibuprofen [Motrin] 600 mg PO Q8H PRN #30 tablet 01/25/17 Unknown Rx Ipratropium [place] [Atrovent Hfa] 12.9 gm IH Q4HR #2 hfa.aer.ad 01/25/17 Unknown Rx HYDROcodone/APAP 5-325 [[place] 1 each PO Q6HR PRN #10 tablet 05/10/17 Unknown Rx 5/325] ED Physical Exam - General Limitations: Physical Limitation General appearance: alert, in no apparent distress - Head Head exam: Present: atraumatic, normocephalic - Eye Eye exam: Present: normal appearance - ENT ENT exam: Present: mucous membranes moist - Neck Neck exam: Present: normal inspection - Respiratory Respiratory exam: Present: normal lung sounds bilaterally. Absent: respiratory distress - Cardiovascular Cardiovascular Exam: Present: regular rate, normal rhythm. Absent: systolic murmur, diastolic murmur, rubs, gallop - GI/Abdominal GI/Abdominal exam: Present: soft, normal bowel sounds. Absent: distended, tenderness, guarding, rebound - Extremities Exam Extremities exam: Present: normal inspection, other (full range of motion right hip no tenderness able to weight-bear) - Back Exam Back exam: Present: normal inspection, CVA tenderness (R) (right flank hematoma) , other - Neurological Exam Neurological exam: Present: alert, oriented X3 - Psychiatric Psychiatric exam: Present: normal affect, normal mood - Skin Skin exam: Present: warm, dry, intact, normal color. Absent: rash ED Course Vital Signs 05/10/17 10:34 Temperature 97.8 F Pulse Rate 77 Respiratory 16 Rate Blood Pressure 148/98 [Right] O2 Sat by Pulse 98 Oximetry ED Medical Decision Making - Radiology Data Radiology results: report reviewed, image reviewed - Medical Decision Making Mrs. Avila presents with right hip pain and right flank hematoma after fall. History of recurrent falls for the past 3 years requiring cane for gait instability. patient has also osteoarthritis in the right hip without fracture. she has a right flank bruise contusion. Prescribed norco Critical care attestation.: If time is entered above; I have spent that time in minutes in the direct care of this critically ill patient, excluding procedure time. ED Disposition Clinical Impression: Osteoarthritis, Right hip pain, Contusion, flank, Recurrent falls Disposition: TO HOME OR SELFCARE Is pt being admited?: No Does the pt Need Aspirin: No Condition: Stable Instructions: Osteoarthritis (ED), Fall Prevention for Older Adults (ED) Prescriptions: HYDROcodone/APAP 5-325 [[place] 5/325] 1 each PO Q6HR PRN #10 tablet PRN Reason: Pain Referrals: DEMETRICE MAJOR MD [Staff Physician] - 3-5 Days [facility] [Outside] - 3-5 Days Time of Disposition: 13:14
== END 2017-05-10 13:21 | disposition home or self-care (01) ==
LOC: ED 10:29
DX: S30.1XXA Contusion of abdominal wall, initial encounter (principal); M25.551 Pain in right hip; M19.90 Unspecified osteoarthritis, unspecified site; J44.9 Chronic obstructive pulmonary disease, unspecified; Z95.1 Presence of aortocoronary bypass graft; Z88.6 Allergy status to analgesic agent; W18.30XA Fall on same level, unspecified, initial encounter; Y93.89 Activity, other specified; Y92.89 Other specified places as the place of occurrence of the external cause; Y99.8 Other external cause status
CPT/HCPCS: 99283

== ENCOUNTER 2017-06-02 19:01 | Emergency (ER) | payer MEDICAID ==
[2017-06-02 19:11] VITALS: BP 161/99
== END 2017-06-02 23:35 | disposition left against medical advice (07) ==
LOC: ED 19:01
DX: J00 Acute nasopharyngitis [common cold] (principal); Z53.21 Procedure and treatment not carried out due to patient leaving prior to being seen by health care provider

== ENCOUNTER 2017-08-16 18:26 | Emergency (ER) | payer MEDICAID ==
[2017-08-16] MEDS ORDERED: ASPIRIN PO ONE (18:38)
[2017-08-16 19:13] LABS: Basophils # (Auto) 0.1 K/mm3 (0.0-0.1); Basophils % (Auto) 0.7 % (0.0-1.8); Eosinophils # (Auto) 0.2 K/mm3 (0.0-0.4); Eosinophils % (Auto) 2.1 % (0.0-4.3); Hematocrit 46.4 % (30.3-42.9); Hemoglobin 15.7 gm/dl (10.1-14.3); Lymphocytes # (Auto) 3.3 K/mm3 (1.2-5.4); Lymphocytes % (Auto) 30.5 % (13.4-35.0); Mean Corpuscular HGB Conc 34 % (30-34); Mean Corpuscular Hemoglobin 30 pg (28-32); Mean Corpuscular Volume 90 fl (79-97); Monocytes # (Auto) 0.5 K/mm3 (0.0-0.8); Monocytes % (Auto) 4.9 % (0.0-7.3); Platelet Count 232 K/mm3 (140-440); Red Blood Count 5.17 M/mm3 (3.65-5.03); Red Cell Distribution Width 13.8 % (13.2-15.2)
[2017-08-16 19:30] LABS: BUN/Creatinine Ratio 20; Blood Urea Nitrogen 12 mg/dL (7-17); Calcium 9.9 mg/dL (8.4-10.2); Hemolysis Index 6
[2017-08-16] MEDS ORDERED: PROVENTIL IH ONE (20:24)
--- NOTE | 2017-08-16 20:29 | Emergency Department Report ---
ED Shortness of Breath HPI - General Chief Complaint: Chest Pain Stated Complaint: CHEST PAIN/SWOLLEN FEET Time Seen by Provider: 08/16/17 20:01 Source: patient Mode of arrival: Ambulatory Limitations: No Limitations - History of Present Illness Initial Comments: Ms Avila is a 62 year-old woman with hx of COPD, HTN who presents with various complaints, including cough. has been having nighttime cough for 2 weeks. Makes it hard to sleep. Non-productive. No fever. Also reports orthopnea, improves with sitting up. Some decreased appetite. gets alternating pedal edema, right now has swelling in her left foot. No calf swelling. Does get short of rbeath with walking as well, but this is chronic. Has bilateral chest pain when she coughs. No radiation. Has been seen at [facility] and is being worked-up for possible CHF, does not sound like she has had an Echo. As well has a pacemaker for "slow heart beat." MD Complaint: shortness of breath, cough, chest pain -: week(s) Severity: mild Quality: dull Consistency: other (with coughing) Worsens With: lying flat, coughing Known History Of: COPD, asthma Associated Symptoms: chest pain, orhopnia - Related Data Home Medications Medication Instructions Recorded Confirmed Last Taken Losartan [Cozaar] 100 mg PO QDAY 12/23/16 12/23/16 12/23/16 Previous Rx's Medication Instructions Recorded Last Taken Type Acetaminophen [Tylenol Arthritis] 650 mg PO Q6HR PRN #30 tablet.er 01/25/17 Unknown Rx Albuterol Sulfate [Proair 90 mcg IH Q4HR PRN #2 aer.pow.ba 01/25/17 Unknown Rx Respiclick] Benzonatate [Tessalon Perles] 100 mg PO Q8HR PRN #30 capsule 01/25/17 Unknown Rx Fluticasone [Flonase] 1 spray NS QDAY #1 bottle 01/25/17 Unknown Rx Ibuprofen [Motrin] 600 mg PO Q8H PRN #30 tablet 01/25/17 Unknown Rx Ipratropium [place] [Atrovent Hfa] 12.9 gm IH Q4HR #2 hfa.aer.ad 01/25/17 Unknown Rx HYDROcodone/APAP 5-325 [[place] 1 each PO Q6HR PRN #10 tablet 05/10/17 Unknown Rx 5/325] Allergies Allergy/AdvReac Type Severity Reaction Status Date / Time codeine Allergy Hives Verified 12/12/16 18:04 ED Review of Systems ROS: Stated complaint: CHEST PAIN/SWOLLEN FEET Other details as noted in HPI Comment: All other systems reviewed and negative Constitutional: denies: chills, fever Eyes: eye pain, eye discharge. denies: vision change ENT: ear pain, congestion. denies: throat pain Respiratory: cough, orthopnea, shortness of breath, SOB with exertion, wheezing Cardiovascular: chest pain, dyspnea on exertion, orthopnea, edema. denies: palpitations, syncope Gastrointestinal: denies: abdominal pain, nausea, diarrhea Genitourinary: denies: urgency, dysuria Musculoskeletal: joint swelling. denies: back pain, arthralgia Skin: denies: rash, lesions Neurological: denies: headache, weakness, paresthesias ED Past Medical Hx - Past Medical History Hx Hypertension: Yes Hx Asthma: Yes Hx COPD: Yes Additional medical history: pacer - Surgical History Hx Pacemaker: Yes Additional Surgical History: Hysterectomy - Social History Smoking Status: Current Every Day Smoker Substance Use Type: None - Medications Home Medications: Home Medications Medication Instructions Recorded Confirmed Last Taken Type Losartan [Cozaar] 100 mg PO QDAY 12/23/16 12/23/16 12/23/16 History Acetaminophen [Tylenol Arthritis] 650 mg PO Q6HR PRN #30 tablet.er 01/25/17 Unknown Rx Albuterol Sulfate [Proair 90 mcg IH Q4HR PRN #2 aer.pow.ba 01/25/17 Unknown Rx Respiclick] Benzonatate [Tessalon Perles] 100 mg PO Q8HR PRN #30 capsule 01/25/17 Unknown Rx Fluticasone [Flonase] 1 spray NS QDAY #1 bottle 01/25/17 Unknown Rx Ibuprofen [Motrin] 600 mg PO Q8H PRN #30 tablet 01/25/17 Unknown Rx Ipratropium [place] [Atrovent Hfa] 12.9 gm IH Q4HR #2 hfa.aer.ad 01/25/17 Unknown Rx HYDROcodone/APAP 5-325 [[place] 1 each PO Q6HR PRN #10 tablet 05/10/17 Unknown Rx 5/325] ED Physical Exam - General Limitations: No Limitations General appearance: alert, in no apparent distress - Head Head exam: Present: atraumatic, normocephalic - Eye Eye exam: Present: normal appearance, EOMI. Absent: conjunctival injection, nystagmus - ENT ENT exam: Present: normal exam, mucous membranes moist - Neck Neck exam: Present: normal inspection, other (no JVD). Absent: tenderness - Respiratory Respiratory exam: Present: normal lung sounds bilaterally, other (dry cough). Absent: respiratory distress, wheezes, rales - Cardiovascular Cardiovascular Exam: Present: regular rate, normal rhythm. Absent: systolic murmur, diastolic murmur, rubs, gallop - GI/Abdominal GI/Abdominal exam: Present: soft. Absent: distended, tenderness, guarding, rebound - Extremities Exam Extremities exam: Present: other (no calf ttp, left foot swelling just distal to medial malleolus, no bruising, negative homans sign, 2+ DP pulses bilaterally ) - Back Exam Back exam: Absent: tenderness, CVA tenderness (R) - Neurological Exam Neurological exam: Present: alert, oriented X3. Absent: motor sensory deficit - Psychiatric Psychiatric exam: Present: normal affect, normal mood - Skin Skin exam: Present: warm, dry, intact, normal color. Absent: rash ED Course Vital Signs 08/16/17 08/16/17 08/16/17 18:29 20:52 21:29 Temperature 98.1 F 98 F Pulse Rate 79 79 Pulse Rate [ 72 Posterior] Respiratory 18 19 Rate Respiratory 27 H Rate [Posterior ] Blood Pressure 126/81 Blood Pressure 130/85 [Left] O2 Sat by Pulse 97 97 Oximetry 08/16/17 21:39 Temperature Pulse Rate Pulse Rate [ 80 Posterior] Respiratory Rate Respiratory 20 Rate [Posterior ] Blood Pressure Blood Pressure [Left] O2 Sat by Pulse Oximetry ED Medical Decision Making - Lab Data Result diagrams: 08/16/17 18:49 08/16/17 18:49 - EKG Data 1846: HR 70, atrial paces, normal axis, intervals wnl, no St changes concerning for acute ischemia - Radiology Data Radiology results: report reviewed EXAM: XR CHEST ROUTINE 2V HISTORY: dyspnea TECHNIQUE: Chest two views PA and lateral PRIORS: Comparison is January 25, [address] of December 23, 2016 FINDINGS: There is a wedge-shaped opacity at the left lung base unchanged from prior exam consistent with an area of chronic atelectasis as demonstrated on the prior CT. Two lead pacemaker identified lead wires intact. No acute pulmonary infiltrate identified. No pleural fluid collection seen. Mild scarring noted at the right lung base. Lungs are hyperinflated with flattening of the diaphragm which may indicate underlying COPD IMPRESSION: Findings suggestive of COPD - Medical Decision Making Ms Austin is a 62 year-old woman who presents with cough, leg swelling, chest pain. Chest pain only with coughing. Coughing only at night. Hx of COPD. Hard to differentiate night time cough/dyspnea vs orthopnea based on history. No chest pain with exertion. Exam without wheezing, good air movement, dry cough. Slight pedal edema left foot. No calf swelling, no calf tenderness. Exam not consistent with DVT. Suspect this is COPD vs CHF vs URI vs PNA vs ACS. Much less likely ACS. EKG non-ischemic, atrial paced. Trop neg. BNP normal. Lytes wnl. CBC wnl. Given albuterol neb with improvement. Low clinical suspicion of PE. Suspect this is COPD/asthma based on history and exam. Some improvement in cough with albuterol. Leg swelling has been alternating, low suspicion of DVT based on hx and exam. Will recommend compression stockings and keep feet raised when possible. Giving steroid taper. DC to home with established toni f/u. No evidence of CHF, ACS, PNA. HEART score 2 (Age, risk factors). Given care instructions and return precautions. Critical care attestation.: If time is entered above; I have spent that time in minutes in the direct care of this critically ill patient, excluding procedure time. ED Disposition Clinical Impression: Cough, Peripheral edema Disposition: DC-01 TO HOME OR SELFCARE Is pt being admited?: No Condition: Stable Instructions: Chronic Obstructive Pulmonary Disease (ED), Asthma (ED) Referrals: PRIMARY CARE, [Primary Care Provider] - 3-5 Days
[2017-08-16 20:52] VITALS: BP 130/85
[2017-08-16] MEDS ORDERED: ASPIRIN ONE (21:08)
--- NOTE | 2017-08-16 21:08 | XRay Report ---
FINAL REPORT EXAM: XR CHEST ROUTINE 2V HISTORY: dyspnea TECHNIQUE: Chest two views PA and lateral PRIORS: Comparison is January 25, [address] of December 23, 2016 FINDINGS: There is a wedge-shaped opacity at the left lung base unchanged from prior exam consistent with an area of chronic atelectasis as demonstrated on the prior CT. Two lead pacemaker identified lead wires intact. No acute pulmonary infiltrate identified. No pleural fluid collection seen. Mild scarring noted at the right lung base. Lungs are hyperinflated with flattening of the diaphragm which may indicate underlying COPD IMPRESSION: Findings suggestive of COPD pacemaker No acute interval change
[2017-08-16] MEDS ORDERED: DELTASONE PO ONE (21:48)
== END 2017-08-16 22:01 | disposition home or self-care (01) ==
LOC: ED 18:26
DX: R60.9 Edema, unspecified (principal); R05 Cough; I10 Essential (primary) hypertension; J45.909 Unspecified asthma, uncomplicated; F17.200 Nicotine dependence, unspecified, uncomplicated; Z90.710 Acquired absence of both cervix and uterus; Z95.0 Presence of cardiac pacemaker; Z88.5 Allergy status to narcotic agent
CPT/HCPCS: 36415; 71046; 80048; 83880; 84484; 85025; 93005; 93010; 94640; 99284; J7512

== ENCOUNTER 2018-04-12 13:25 | Emergency (ER) | payer MEDICAID ==
[2018-04-12 13:35] VITALS: BP 146/93
--- NOTE | 2018-04-12 13:35 | Emergency Department Report ---
Blank Doc - Documentation Documentation: This is a 62-year-old female that presents with upper and lower extermities bu rning sensation. Denies any injuries or trauma. Denies hx of DM. This initial assessment diagnostic orders/clinical plan/treatment(s) is/are subject to change based on patient's health status, clinical progression and re- assessment by fellow clinical providers in the ED. Further treatment and workup at subsequent clinical providers discretion. Patient/guardians urged not to elope from ED s their condition may be serious if not clinically assessed and managed. Initial orders include: 1-Patient sent to [facility] for further evaluation and treatment 2- labs
[2018-04-12 13:54] LABS: Basophils % (Auto) 0.5 % (0.0-1.8); Eosinophils # (Auto) 0.2 K/mm3 (0.0-0.4); Eosinophils % (Auto) 1.9 % (0.0-4.3); Hematocrit 46.2 % (30.3-42.9); Hemoglobin 15.8 gm/dl (10.1-14.3); Lymphocytes # (Auto) 2.6 K/mm3 (1.2-5.4); Lymphocytes % (Auto) 26.6 % (13.4-35.0); Mean Corpuscular HGB Conc 34 % (30-34); Mean Corpuscular Volume 91 fl (79-97); Monocytes # (Auto) 0.4 K/mm3 (0.0-0.8); Monocytes % (Auto) 4.2 % (0.0-7.3); Platelet Count 227 K/mm3 (140-440); Red Blood Count 5.07 M/mm3 (3.65-5.03)
[2018-04-12] MEDS ORDERED: ULTRAM PO ONE (14:01)
[2018-04-12] MEDS ORDERED: IBUPROFEN PO ONE (14:01)
[2018-04-12 14:07] LABS: BUN/Creatinine Ratio 17; Blood Urea Nitrogen 10 mg/dL (7-17); Calcium 9.8 mg/dL (8.4-10.2); Hemolysis Index 11
--- NOTE | 2018-04-12 15:09 | Emergency Department Report ---
ED General Adult HPI - General Chief complaint: Extremity Injury, Upper Stated complaint: BURNING ALL OVER BODY/NUMBNESS Time Seen by Provider: 04/12/18 13:31 Source: patient Mode of arrival: Ambulatory Limitations: No Limitations - History of Present Illness Initial comments: Patient is a 62-year-old female who is complaining of burning sensation to the bilateral hands as well as some neck pain has been going on for several months. Patient denies history of diabetes. Patient states she also feels some burning sensations in the bilateral legs as well occasionally. Patient states that the pain is 8 out of 10 in severity. Patient denies any trauma but states she does have frequent episodes where she'll slip but does not fall. Patient states she feels some numbness as well. Patient denies nausea vomiting diarrhea fevers or chills. Severity scale (0 -10): 8 - Related Data Home Medications Medication Instructions Recorded Confirmed Last Taken Losartan [Cozaar] 100 mg PO QDAY 12/23/16 12/23/16 12/23/16 Previous Rx's Medication Instructions Recorded Last Taken Type Acetaminophen [Tylenol Arthritis] 650 mg PO Q6HR PRN #30 tablet.er 01/25/17 Unknown Rx Albuterol Sulfate [Proair 90 mcg IH Q4HR PRN #2 aer.pow.ba 01/25/17 Unknown Rx Respiclick] Fluticasone [Flonase] 1 spray NS QDAY #1 bottle 01/25/17 Unknown Rx Ipratropium [place] [Atrovent Hfa] 12.9 gm IH Q4HR #2 hfa.aer.ad 01/25/17 Unknown Rx HYDROcodone/APAP 5-325 [[place] 1 each PO Q6HR PRN #10 tablet 05/10/17 Unknown Rx 5/325] Prednisone [predniSONE 10 mg 10 mg PO .TAPER #1 tab.ds.pk 08/16/17 Unknown Rx (6-Day Pack, 21 Tabs)] Ibuprofen [Motrin] 600 mg PO Q8H PRN #12 tablet 10/22/17 Unknown Rx cephALEXin [Keflex] 500 mg PO Q12H 7 Days #14 cap 10/22/17 Unknown Rx Benzonatate [Tessalon Perles] 100 mg PO Q8HR PRN #20 capsule 01/31/18 Unknown Rx Ibuprofen [Motrin 600 MG tab] 600 mg PO Q8H PRN #20 tablet 01/31/18 Unknown Rx predniSONE [Deltasone] 20 mg PO QDAY #5 tab 01/31/18 Unknown Rx Ibuprofen [Motrin] 800 mg PO Q8HR PRN #20 tablet 04/12/18 Unknown Rx traMADol [Ultram] 50 mg PO Q6HR PRN #12 tablet 04/12/18 Unknown Rx Allergies Allergy/AdvReac Type Severity Reaction Status Date / Time codeine Allergy Hives Verified 01/31/18 15:20 ED Review of Systems ROS: Stated complaint: BURNING ALL OVER BODY/NUMBNESS Other details as noted in HPI Comment: All other systems reviewed and negative ED Past Medical Hx - Past Medical History Previous Medical History?: Yes Hx Hypertension: Yes Hx Asthma: Yes Hx COPD: Yes Additional medical history: pacer - Surgical History Past Surgical History?: Yes Hx Pacemaker: Yes Additional Surgical History: Hysterectomy - Social History Smoking Status: Current Every Day Smoker Substance Use Type: None - Medications Home Medications: Home Medications Medication Instructions Recorded Confirmed Last Taken Type Losartan [Cozaar] 100 mg PO QDAY 12/23/16 12/23/16 12/23/16 History Acetaminophen [Tylenol Arthritis] 650 mg PO Q6HR PRN #30 tablet.er 01/25/17 Unknown Rx Albuterol Sulfate [Proair 90 mcg IH Q4HR PRN #2 aer.pow.ba 01/25/17 Unknown Rx Respiclick] Fluticasone [Flonase] 1 spray NS QDAY #1 bottle 01/25/17 Unknown Rx Ipratropium [place] [Atrovent Hfa] 12.9 gm IH Q4HR #2 hfa.aer.ad 01/25/17 Unknown Rx HYDROcodone/APAP 5-325 [[place] 1 each PO Q6HR PRN #10 tablet 05/10/17 Unknown Rx 5/325] Prednisone [predniSONE 10 mg 10 mg PO .TAPER #1 tab.ds.pk 08/16/17 Unknown Rx (6-Day Pack, 21 Tabs)] Ibuprofen [Motrin] 600 mg PO Q8H PRN #12 tablet 10/22/17 Unknown Rx cephALEXin [Keflex] 500 mg PO Q12H 7 Days #14 cap 10/22/17 Unknown Rx Benzonatate [Tessalon Perles] 100 mg PO Q8HR PRN #20 capsule 01/31/18 Unknown Rx Ibuprofen [Motrin 600 MG tab] 600 mg PO Q8H PRN #20 tablet 01/31/18 Unknown Rx predniSONE [Deltasone] 20 mg PO QDAY #5 tab 01/31/18 Unknown Rx Ibuprofen [Motrin] 800 mg PO Q8HR PRN #20 tablet 04/12/18 Unknown Rx traMADol [Ultram] 50 mg PO Q6HR PRN #12 tablet 04/12/18 Unknown Rx ED Physical Exam - General Limitations: No Limitations General appearance: alert, in no apparent distress - Head Head exam: Present: atraumatic, normocephalic - Eye Eye exam: Present: normal appearance - ENT ENT exam: Present: mucous membranes moist - Neck Neck exam: Present: normal inspection - Respiratory Respiratory exam: Present: normal lung sounds bilaterally. Absent: respiratory distress, wheezes, rales, rhonchi - Cardiovascular Cardiovascular Exam: Present: regular rate, normal rhythm. Absent: systolic murmur, diastolic murmur, rubs, gallop - GI/Abdominal GI/Abdominal exam: Present: soft, normal bowel sounds. Absent: distended, tenderness, guarding, rebound - Extremities Exam Extremities exam: Present: normal inspection - Back Exam Back exam: Present: normal inspection - Neurological Exam Neurological exam: Present: alert, oriented X3 - Psychiatric Psychiatric exam: Present: normal affect, normal mood - Skin Skin exam: Present: warm, dry, intact, normal color. Absent: rash ED Course Vital Signs 04/12/18 04/12/18 13:33 14:19 Temperature 97.3 F L Pulse Rate 95 H Respiratory 16 16 Rate Blood Pressure 146/93 O2 Sat by Pulse 95 Oximetry ED Medical Decision Making - Lab Data Result diagrams: 04/12/18 13:37 04/12/18 13:37 - Medical Decision Making Patient is a 5-year-old female who presented with radicular type pain. Patient is not diabetic which makes diabetic neuropathy less likely. Patient to be referred to Dr. Wilson for further evaluation of her back. Pictures discharged home in stable condition. Critical care attestation.: If time is entered above; I have spent that time in minutes in the direct care of this critically ill patient, excluding procedure time. ED Disposition Clinical Impression: Radiculopathy Qualifiers: Spinal region: unspecified Qualified Code(s): M54.10 - Radiculopathy, site unspecified Disposition: DC-01 TO HOME OR SELFCARE Is pt being admited?: No Does the pt Need Aspirin: No Condition: Stable Instructions: Lumbar Radiculopathy (ED), Cervical Radiculopathy (ED) Referrals: NEHA WILSON MD [Staff Physician] - 3-5 Days Time of Disposition: 15:09
== END 2018-04-12 15:32 | disposition home or self-care (01) ==
LOC: ED 13:25
DX: M54.10 Radiculopathy, site unspecified (principal); I10 Essential (primary) hypertension; J44.9 Chronic obstructive pulmonary disease, unspecified; F17.200 Nicotine dependence, unspecified, uncomplicated; Z90.710 Acquired absence of both cervix and uterus; Z79.899 Other long term (current) drug therapy; Z88.4 Allergy status to anesthetic agent
CPT/HCPCS: 36415; 80048; 85025; 99283

== ENCOUNTER 2018-08-23 17:08 | Emergency (ER) | payer MEDICAID ==
[2018-08-23 17:22] VITALS: BP 142/94
--- NOTE | 2018-08-23 17:32 | Event Note ---
ED Screening Note Date of service: 08/23/18 Time: 17:28 ED Screening Note: This is a 63 y.o. F. that presents to the ER with BLE edema, worse on left. HTN, COPD, asthma, and pacemaker This initial assessment/diagnostic orders/clinical plan/treatment(s) is/are subject to change based on patients health status, clinical progression and re- assessment by fellow clinical providers in the ED. Further treatment and workup at subsequent clinical providers discretion. Patient/guardian urged not to elope from the ED as their condition may be serious if not clinically assessed and managed. Initial orders include: Labs
[2018-08-23 18:29] LABS: Alanine Aminotransferase 10 units/L (7-56); Albumin 4.5 g/dL (3.9-5); BUN/Creatinine Ratio 13; Blood Urea Nitrogen 9 mg/dL (7-17); Calcium 10.6 mg/dL (8.4-10.2); Hemolysis Index 5
[2018-08-23 18:35] LABS: Hematocrit 45.4 % (30.3-42.9); Hemoglobin 15.5 gm/dl (10.1-14.3); Mean Corpuscular HGB Conc 34 % (30-34); Mean Corpuscular Volume 90 fl (79-97); Platelet Count 267 K/mm3 (140-440); Red Blood Count 5.06 M/mm3 (3.65-5.03); Red Cell Distribution Width 13.9 % (13.2-15.2)
== END 2018-08-23 19:57 | disposition left against medical advice (07) ==
LOC: ED 17:08
DX: R22.42 Localized swelling, mass and lump, left lower limb (principal); Z53.21 Procedure and treatment not carried out due to patient leaving prior to being seen by health care provider
CPT/HCPCS: 36415; 80053; 83880; 85027

== ENCOUNTER 2018-12-27 02:56 | Emergency (ER) | payer MEDICAID ==
[2018-12-27] MEDS ORDERED: IPRATROPIUM 0.02% NEBU 2.5 ML IH ONE (03:29)
[2018-12-27] MEDS ORDERED: ALBUTEROL 2.5 MG/3 ML NEBU IH ONE (03:29)
[2018-12-27] MEDS ORDERED: ACETAMINOPHEN 500 MG TAB PO ONE (03:29)
[2018-12-27] MEDS ORDERED: SODIUM CHLORIDE 0.9% 500 ML 500 ML IV ONE (03:29)
[2018-12-27] MEDS ORDERED: KETOROLAC 30 MG/1 ML INJ IV ONE (03:29)
--- NOTE | 2018-12-27 03:31 | Emergency Department Report ---
ED General Adult HPI - General Chief complaint: Dyspnea/Respdistress Stated complaint: DIFFICULTY IN BREATHING Time Seen by Provider: 12/27/18 03:28 Source: patient, EMS ( EMS documentation not available at time of chart dictation ), RN notes reviewed, old records reviewed Mode of arrival: Stretcher Limitations: No Limitations - History of Present Illness Initial comments: This is a 63-year-old female. I have evaluated this patient in the past. The patient states her primary care doctor is at the [facility]. She has a history of COPD, still consumes tobacco, and reportedly has a history of pacemaker that was placed for a slow heart rate. She presents to the ER with cough, clear white mucous production, chest tightness, shortness of breath. She denies DVT and pulmonary embolism risk factors. Symptoms present for the past 3 days. The tightness is on the anterior left and right chest wall, and does not radiate to the back, arms or neck. There is no vomiting, diaphoresis, or recent aspirin consumption. Patient denies marijuana consumption. -: Gradual Location: chest Radiation: non-radiation Quality: aching Consistency: intermittent Improves with: none Worsens with: none - Related Data Home Medications Medication Instructions Recorded Confirmed Last Taken Losartan [Cozaar] 100 mg PO QDAY 12/23/16 12/23/16 12/23/16 Previous Rx's Medication Instructions Recorded Last Taken Type Acetaminophen [Tylenol Arthritis] 650 mg PO Q6HR PRN #30 tablet.er 01/25/17 Unknown Rx Albuterol Sulfate [Proair 90 mcg IH Q4HR PRN #2 aer.pow.ba 01/25/17 Unknown Rx Respiclick] Fluticasone [Flonase] 1 spray NS QDAY #1 bottle 01/25/17 Unknown Rx Ipratropium [place] [Atrovent Hfa] 12.9 gm IH Q4HR #2 hfa.aer.ad 01/25/17 Unknown Rx HYDROcodone/APAP 5-325 [[place] 1 each PO Q6HR PRN #10 tablet 05/10/17 Unknown Rx 5/325] Prednisone [predniSONE 10 mg 10 mg PO .TAPER #1 tab.ds.pk 08/16/17 Unknown Rx (6-Day Pack, 21 Tabs)] Ibuprofen [Motrin] 600 mg PO Q8H PRN #12 tablet 10/22/17 Unknown Rx cephALEXin [Keflex] 500 mg PO Q12H 7 Days #14 cap 10/22/17 Unknown Rx Benzonatate [Tessalon Perles] 100 mg PO Q8HR PRN #20 capsule 01/31/18 Unknown Rx Ibuprofen [Motrin 600 MG tab] 600 mg PO Q8H PRN #20 tablet 01/31/18 Unknown Rx predniSONE [Deltasone] 20 mg PO QDAY #5 tab 01/31/18 Unknown Rx Ibuprofen [Motrin] 800 mg PO Q8HR PRN #20 tablet 04/12/18 Unknown Rx traMADol [Ultram] 50 mg PO Q6HR PRN #12 tablet 04/12/18 Unknown Rx Acetaminophen [Non-Aspirin Extra 500 mg PO Q6HR PRN #30 tablet 12/27/18 Unknown Rx Strength] Albuterol Sulfate [Albuterol 0.63% 0.63 mg IH Q4HR PRN #2 ml 12/27/18 Unknown Rx NEBS] Albuterol Sulfate [Proair 90 mcg IH Q4HR PRN #2 aer.pow.ba 12/27/18 Unknown Rx Respiclick] Aspirin [Aspirin BABY CHEW TAB] 81 mg PO QDAY #30 tab.chew 12/27/18 Unknown Rx Fluticasone [Flonase] 1 spray NS QDAY #1 bottle 12/27/18 Unknown Rx Ipratropium (Nf) [Atrovent] 2 puff IH Q6HR PRN #1 inha 12/27/18 Unknown Rx Nicotine Polacrilex [Nicotine Gum] 4 mg BC QDAY #30 gum 12/27/18 Unknown Rx Allergies Allergy/AdvReac Type Severity Reaction Status Date / Time codeine Allergy Hives Verified 01/31/18 15:20 ED Review of Systems ROS: Stated complaint: DIFFICULTY IN BREATHING Other details as noted in HPI Constitutional: malaise, weakness. denies: fever Eyes: denies: eye discharge ENT: congestion Respiratory: cough, shortness of breath Cardiovascular: other. denies: syncope Gastrointestinal: denies: nausea, vomiting Musculoskeletal: arthralgia Skin: denies: lesions Neurological: weakness Hematological/Lymphatic: denies: easy bleeding ED Past Medical Hx - Past Medical History Hx Hypertension: Yes Hx Asthma: Yes Hx COPD: Yes Additional medical history: pacer - Surgical History Hx Pacemaker: Yes Hx Appendectomy: Yes Additional Surgical History: Hysterectomy - Social History Smoking Status: Current Every Day Smoker Substance Use Type: Prescribed - Medications Home Medications: Home Medications Medication Instructions Recorded Confirmed Last Taken Type Losartan [Cozaar] 100 mg PO QDAY 12/23/16 12/23/16 12/23/16 History Acetaminophen [Tylenol Arthritis] 650 mg PO Q6HR PRN #30 tablet.er 01/25/17 Unknown Rx Albuterol Sulfate [Proair 90 mcg IH Q4HR PRN #2 aer.pow.ba 01/25/17 Unknown Rx Respiclick] Fluticasone [Flonase] 1 spray NS QDAY #1 bottle 01/25/17 Unknown Rx Ipratropium [place] [Atrovent Hfa] 12.9 gm IH Q4HR #2 hfa.aer.ad 01/25/17 Unknown Rx HYDROcodone/APAP 5-325 [[place] 1 each PO Q6HR PRN #10 tablet 05/10/17 Unknown Rx 5/325] Prednisone [predniSONE 10 mg 10 mg PO .TAPER #1 tab.ds.pk 08/16/17 Unknown Rx (6-Day Pack, 21 Tabs)] Ibuprofen [Motrin] 600 mg PO Q8H PRN #12 tablet 10/22/17 Unknown Rx cephALEXin [Keflex] 500 mg PO Q12H 7 Days #14 cap 10/22/17 Unknown Rx Benzonatate [Tessalon Perles] 100 mg PO Q8HR PRN #20 capsule 01/31/18 Unknown Rx Ibuprofen [Motrin 600 MG tab] 600 mg PO Q8H PRN #20 tablet 01/31/18 Unknown Rx predniSONE [Deltasone] 20 mg PO QDAY #5 tab 01/31/18 Unknown Rx Ibuprofen [Motrin] 800 mg PO Q8HR PRN #20 tablet 04/12/18 Unknown Rx traMADol [Ultram] 50 mg PO Q6HR PRN #12 tablet 04/12/18 Unknown Rx Acetaminophen [Non-Aspirin Extra 500 mg PO Q6HR PRN #30 tablet 12/27/18 Unknown Rx Strength] Albuterol Sulfate [Albuterol 0.63% 0.63 mg IH Q4HR PRN #2 ml 12/27/18 Unknown Rx NEBS] Albuterol Sulfate [Proair 90 mcg IH Q4HR PRN #2 aer.pow.ba 12/27/18 Unknown Rx Respiclick] Aspirin [Aspirin BABY CHEW TAB] 81 mg PO QDAY #30 tab.chew 12/27/18 Unknown Rx Fluticasone [Flonase] 1 spray NS QDAY #1 bottle 12/27/18 Unknown Rx Ipratropium (Nf) [Atrovent] 2 puff IH Q6HR PRN #1 inha 12/27/18 Unknown Rx Nicotine Polacrilex [Nicotine Gum] 4 mg BC QDAY #30 gum 12/27/18 Unknown Rx ED Physical Exam - General Limitations: No Limitations General appearance: alert, in no apparent distress - Head Head exam: Present: atraumatic, normocephalic - Eye Eye exam: Present: normal appearance, EOMI. Absent: nystagmus - ENT ENT exam: Present: normal exam, normal orophraynx, mucous membranes moist, normal external ear exam - Neck Neck exam: Present: normal inspection, full ROM - Respiratory Respiratory exam: Present: chest wall tenderness, decreased breath sounds. Absent: respiratory distress, wheezes, rales, rhonchi, stridor - Cardiovascular Cardiovascular Exam: Present: regular rate, normal rhythm, normal heart sounds. Absent: bradycardia, tachycardia, irregular rhythm, systolic murmur, diastolic murmur, rubs, gallop - GI/Abdominal GI/Abdominal exam: Present: soft. Absent: distended, tenderness, guarding, rebound, rigid, pulsatile mass - Extremities Exam Extremities exam: Present: normal inspection, full ROM, other (2+ pulses noted in the bilateral upper, lower extremities. There is no long bone tenderness. Musculoskeletal compartments are soft. The pelvis is stable.). Absent: pedal edema, calf tenderness - Back Exam Back exam: Present: normal inspection. Absent: tenderness, CVA tenderness (R), CVA tenderness (L), paraspinal tenderness, vertebral tenderness - Neurological Exam Neurological exam: Present: alert, other (there is no facial droop. The tongue is midline. Extraocular movements are intact bilaterally. Patient speaking in full complete sentences. Shoulder shrug is intact bilaterally. Hearing is grossly intact bilaterally. Visual acuity intact to finger counting and color perception at a close distance. 5/5 strength 4 extremities. Sensation intact to light touch in 4 extremities.). Absent: motor sensory deficit - Psychiatric Psychiatric exam: Present: anxious - Skin Skin exam: Present: warm, dry, intact, normal color. Absent: rash ED Course Vital Signs 12/27/18 12/27/18 12/27/18 03:24 03:30 03:32 Temperature 98.7 F Pulse Rate 63 66 62 Pulse Rate [ Bilateral] Respiratory 11 L 17 13 Rate Respiratory Rate [Bilateral ] Blood Pressure 139/108 139/108 Blood Pressure 139/108 [Right] O2 Sat by Pulse 98 97 98 Oximetry 12/27/18 12/27/18 12/27/18 03:46 03:49 04:10 Temperature Pulse Rate 61 Pulse Rate [ 70 Bilateral] Respiratory 33 H Rate Respiratory 16 Rate [Bilateral ] Blood Pressure 139/108 149/88 Blood Pressure [Right] O2 Sat by Pulse 98 94 Oximetry 12/27/18 12/27/18 12/27/18 04:16 04:30 04:46 Temperature Pulse Rate Pulse Rate [ Bilateral] Respiratory Rate Respiratory Rate [Bilateral ] Blood Pressure 149/88 149/88 134/78 Blood Pressure [Right] O2 Sat by Pulse 100 100 100 Oximetry 12/27/18 12/27/18 05:00 05:16 Temperature Pulse Rate Pulse Rate [ Bilateral] Respiratory Rate Respiratory Rate [Bilateral ] Blood Pressure 116/66 116/66 Blood Pressure [Right] O2 Sat by Pulse 100 100 Oximetry - Reevaluation(s) Reevaluation #1: 12/27/18 04:25 Differential diagnosis, including but not limited to: Bronchitis, natural history of COPD, costochondritis, pneumonia, acute coronary syndrome, viral syndrome, sinusitis Assessment and plan: 63-year-old female with acute on chronic cough, mucus production, shortness of breath. She is not tachycardic, hypoxic or tachypneic. She does not have labored breathing. She is low risk by well's criteria for pulmonary embolism. She is most likely experiencing the natural history of her COPD. She states that she is interested in tobacco cessation. Screening laboratory studies are unremarkable. EKG is morphologically unchanged from prior EKG. vascular risk factor profile is reviewed and appreciated. Patient has been having 72 hours of symptoms, troponin is negative times one, therefore, this is very unlikely to be acute coronary syndrome. This department and hospital have a protocol whereby patients may obtain an expedited outpatient cardiology follow-up. EKG unremarkable from prior, x-ray the chest unremarkable, screening laboratory studies unremarkable. Repeat troponin, repeat EKG pending. Patient can follow up with outpatient cardiology, pulmonology and primary care. She'll need to stop smoking. Reevaluation #2: 12/27/18 04:58 Resting comfortably and in no acute distress. Breath sounds remain clear auscultation. Laboratory studies unremarkable. There is no wheezing noted. Patient appears comfortable. ED Medical Decision Making - Lab Data Result diagrams: 12/27/18 03:38 12/27/18 03:38 Vital Signs 12/27/18 12/27/18 03:32 03:49 Temperature 98.7 F Pulse Rate 62 Pulse Rate [ 70 Bilateral] Respiratory 13 Rate Respiratory 16 Rate [Bilateral ] Blood Pressure 139/108 Blood Pressure 139/108 [Right] O2 Sat by Pulse 98 Oximetry Lab Results 12/27/18 12/27/18 12/27/18 Range/Units 03:38 03:38 03:38 WBC 9.0 (4.5-11.0) K/mm3 RBC 4.91 (3.65-5.03) M/mm3 Hgb 15.1 H (10.1-14.3) gm/dl Hct 43.6 H (30.3-42.9) % MCV 89 (79-97) fl MCH 31 (28-32) pg MCHC 35 H (30-34) % RDW 14.5 (13.2-15.2) % Plt Count 222 (140-440) K/mm3 PT 13.6 (12.2-14.9) Sec. INR 1.05 (0.87-1.13) Sodium 145 (137-145) mmol/L Potassium 4.1 (3.6-5.0) mmol/L Chloride 107.0 (98-107) mmol/L Carbon Dioxide 27 (22-30) mmol/L Anion Gap 15 mmol/L BUN 8 (7-17) mg/dL Creatinine 0.7 (0.7-1.2) mg/dL Estimated GFR > 60 ml/min BUN/Creatinine Ratio 11 % Glucose 95 (65-100) mg/dL Calcium 9.8 (8.4-10.2) mg/dL Troponin T < 0.010 (0.00-0.029) ng/mL - EKG Data -: EKG Interpreted by Wi EKG shows normal: sinus rhythm Rate: normal - EKG Data 12/27/18 04:27 EKG today shows a sinus rhythm, 60 beats for minute, normal axis, QTC is 450 ms, there is low voltage, there is motion artifact, the EKG is unchanged from prior EKG from 01/31/2018. The EKG is not consistent with ST elevation myocardial infarction. - Radiology Data Radiology results: pending, report reviewed, image reviewed X-ray the chest is negative for acute disease. Critical care attestation.: If time is entered above; I have spent that time in minutes in the direct care of this critically ill patient, excluding procedure time. ED Disposition Clinical Impression: COPD (chronic obstructive pulmonary disease), Tobacco use, Chest tightness Disposition: TO HOME OR SELFCARE Is pt being admited?: No Does the pt Need Aspirin: No Condition: Stable Instructions: Chronic Obstructive Pulmonary Disease (ED) Additional Instructions: Recommend that patient stopped smoking cigarettes. Take the breathing medication as needed and directed, pain medication is needed and directed, aspirin as directed, recommend follow-up with the primary care doctor or board winder within the next 3-5 days. Recommend follow-up with a youth development specialist within the next 2-4 weeks. Patient likely experiencing underlying natural history of COPD, which will likely take weeks months, or even years to improve, if ever. Patient should stop smoking tobacco, as this is likely exacerbating and worsening her underlying lung function. Return to the emergency room right away with new, worsened, different symptoms, or symptoms not present on the initial emergency room evaluation. Prescriptions: Albuterol Sulfate [Albuterol 0.63% NEBS] 0.63 mg IH Q4HR PRN #2 ml PRN Reason: Wheezing Aspirin [Aspirin BABY CHEW TAB] 81 mg PO QDAY #30 tab.chew Ipratropium (Nf) [Atrovent] 2 puff IH Q6HR PRN #1 inha PRN Reason: Dyspnea Fluticasone [Flonase] 1 spray NS QDAY #1 bottle Nicotine Polacrilex [Nicotine Gum] 4 mg BC QDAY #30 gum Acetaminophen [Non-Aspirin Extra Strength] 500 mg PO Q6HR PRN #30 tablet PRN Reason: Pain , Severe (7-10) Albuterol Sulfate [Proair Respiclick] 90 mcg IH Q4HR PRN #2 aer.pow.ba PRN Reason: Wheezing Referrals: BERONICA GLORIA MD [Staff Physician] - 3-5 Days DUC PALMER MD [Staff Physician] - 3-5 Days ANN KNOX MD [Staff Physician] - 3-5 Days [facility] [Provider Group] - 3-5 Days [facility], [Provider Group] - 3-5 Days
[2018-12-27 03:59] LABS: Hematocrit 43.6 % (30.3-42.9); Hemoglobin 15.1 gm/dl (10.1-14.3); Mean Corpuscular HGB Conc 35 % (30-34); Mean Corpuscular Volume 89 fl (79-97); Platelet Count 222 K/mm3 (140-440); Red Blood Count 4.91 M/mm3 (3.65-5.03); Red Cell Distribution Width 14.5 % (13.2-15.2)
[2018-12-27 04:08] LABS: BUN/Creatinine Ratio 11; Blood Urea Nitrogen 8 mg/dL (7-17); Calcium 9.8 mg/dL (8.4-10.2); Hemolysis Index 6
[2018-12-27 04:09] LABS: INR 1.05 (0.87-1.13)
--- NOTE | 2018-12-27 04:17 | XRay Report ---
CHEST 2 VIEWS INDICATION / CLINICAL INFORMATION: hina. COMPARISON: 01/31/2018 FINDINGS: SUPPORT DEVICES: Pacemaker device is stable in position. HEART / MEDIASTINUM: No significant abnormality. LUNGS / PLEURA: No significant pulmonary or pleural abnormality. No pneumothorax. ADDITIONAL FINDINGS: No significant additional findings. IMPRESSION: 1. No acute findings. No interval change. Signer Name: Jaclyn More MD Signed: 12/27/2018 4:13 AM Workstation Name: [id number]
[2018-12-27 10:56] VITALS: BP 113/64
== END 2018-12-27 10:00 | disposition home or self-care (01) ==
LOC: ED 02:56
DX: J44.9 Chronic obstructive pulmonary disease, unspecified (principal); I10 Essential (primary) hypertension; J45.909 Unspecified asthma, uncomplicated; F17.200 Nicotine dependence, unspecified, uncomplicated; Z90.49 Acquired absence of other specified parts of digestive tract; Z98.890 Other specified postprocedural states; Z79.1 Long term (current) use of non-steroidal anti-inflammatories (NSAID); Z79.899 Other long term (current) drug therapy; Z88.5 Allergy status to narcotic agent
CPT/HCPCS: 36415; 71046; 80048; 82550; 83735; 84484; 85027; 85610; 93005; 93010; 94644; 96374; 99285; J1885; J7040

== ENCOUNTER 2019-06-25 10:02 | Emergency (ER) | payer MEDICARE ==
[2019-06-25 10:10] VITALS: BP 128/75
--- NOTE | 2019-06-25 10:43 | Emergency Department Report ---
Upper Extremity - HPI Chief Complaint: Extremity Injury, Upper Stated Complaint: LFT ARM PAIN/FINGERS TINGLE Time Seen by Provider: 06/25/19 10:38 Upper Extremity: Left Hand Occurred When: >5 Days (2 months) Severity: severe Symptoms: Yes Pain with Movement, Yes Limited Range of Movement, Yes Numbness, Yes Weakness, Yes Swelling, No Deformity Other History: 63-year-old -Citizen Of [place] female that is nontoxic no acute distress presents to the emergency room for a 2-month history of left arm pain tenderness feeling cold and numbness. Patient denies any injuries. Patient reported that she was seen 2 months ago for the same but was unable to follow- up. Patient states that she was seen at her [place] provider and was told that after she has her pacemaker check that then they can do further testing. Patient states that she has not been able to have her pacemaker checked secondary to coronavirus shutdown's. Patient reports that her left hand always stay cold . Patient has a past medical history of COPD asthma hypertension pacemaker surgical history of hysterectomy appendectomy pacemaker. Patient currently ambulates with a walker. ED Review of Systems ROS: Stated complaint: LFT ARM PAIN/FINGERS TINGLE Other details as noted in HPI Comment: All other systems reviewed and negative Neurological: weakness (Left hand), numbness (Left hand), paresthesias (Left hand) ED Past Medical Hx - Past Medical History Previous Medical History?: Yes Hx Hypertension: Yes Hx Asthma: Yes Hx COPD: Yes Additional medical history: pacer - Surgical History Past Surgical History?: Yes Hx Pacemaker: Yes Hx Appendectomy: Yes Additional Surgical History: Hysterectomy - Social History Smoking Status: Current Every Day Smoker Substance Use Type: None - Medications Home Medications: Home Medications Medication Instructions Recorded Confirmed Last Taken Type Losartan [Cozaar] 100 mg PO QDAY 12/23/16 12/23/16 12/23/16 History Acetaminophen [Tylenol Arthritis] 650 mg PO Q6HR PRN #30 tablet.er 01/25/17 Unknown Rx Albuterol Sulfate [Proair 90 mcg IH Q4HR PRN #2 aer.pow.ba 01/25/17 Unknown Rx Respiclick] Fluticasone [Flonase] 1 spray NS QDAY #1 bottle 01/25/17 Unknown Rx Ipratropium Sod [Atrovent Hfa] 12.9 gm IH Q4HR #2 hfa.aer.ad 01/25/17 Unknown Rx HYDROcodone/APAP 5-325 [[place] 1 each PO Q6HR PRN #10 tablet 05/10/17 Unknown Rx 5/325] Prednisone [predniSONE 10 mg 10 mg PO .TAPER #1 tab.ds.pk 08/16/17 Unknown Rx (6-Day Pack, 21 Tabs)] Ibuprofen [Motrin] 600 mg PO Q8H PRN #12 tablet 10/22/17 Unknown Rx cephALEXin [Keflex] 500 mg PO Q12H 7 Days #14 cap 10/22/17 Unknown Rx Benzonatate [Tessalon Perles] 100 mg PO Q8HR PRN #20 capsule 01/31/18 Unknown Rx Ibuprofen [Motrin 600 MG tab] 600 mg PO Q8H PRN #20 tablet 01/31/18 Unknown Rx predniSONE [Deltasone] 20 mg PO QDAY #5 tab 01/31/18 Unknown Rx Ibuprofen [Motrin] 800 mg PO Q8HR PRN #20 tablet 04/12/18 Unknown Rx traMADoL [Ultram] 50 mg PO Q6HR PRN #12 tablet 04/12/18 Unknown Rx Acetaminophen [Non-Aspirin Extra 500 mg PO Q6HR PRN #30 tablet 12/27/18 Unknown Rx Strength] Albuterol Sulfate [Albuterol 0.63% 0.63 mg IH Q4HR PRN #2 ml 12/27/18 Unknown Rx NEBS] Albuterol Sulfate [Proair 90 mcg IH Q4HR PRN #2 aer.pow.ba 12/27/18 Unknown Rx Respiclick] Aspirin [Aspirin BABY CHEW TAB] 81 mg PO QDAY #30 tab.chew 12/27/18 Unknown Rx Fluticasone [Flonase] 1 spray NS QDAY #1 bottle 12/27/18 Unknown Rx Ipratropium (Nf) [Atrovent] 2 puff IH Q6HR PRN #1 inha 12/27/18 Unknown Rx Nicotine Polacrilex [Nicotine Gum] 4 mg BC QDAY #30 gum 12/27/18 Unknown Rx Upper Extremity Exam - Exam General: Vital signs noted. No distress. Alert and acting appropriately. Shoulder Exam: Yes Normal Range of Motion in Shoulder, No Shoulder Tenderness, No Clavicle Tenderness, No Shoulder Deformity, No AC Joint Tenderness Arm Exam: No Arm/Humerus Tenderness, No Arm Deformity Forearm: Yes Forearm Tenderness, Yes Pain with Pronation, Yes Pain with Supination, No Forearm Deformity Wrist: Yes Wrist Tenderness, Yes Normal ROM in Wrist, No Wrist Deformity, No Snuffbox Tenderness, No Pain with Axial Thumb Compression Hand: Yes Hand Tenderness, Yes Digit Tenderness, No Hand Deformity, No Tendon Dysfunction (Hand feels cold) CMS Exam: Yes Normal Distal Pulses, Yes Normal Capillary Refill, Yes Normal Distal Sensation, No Broken Skin ED Course Vital Signs 06/25/19 06/25/19 10:09 10:10 Temperature 98.3 F Pulse Rate 72 Respiratory 16 Rate Blood Pressure 128/75 O2 Sat by Pulse 97 Oximetry ED Medical Decision Making - Radiology Data Radiology results: report reviewed Print Report Referring Physician:SANDRA HILLMANPatient Name:JAKE AGUILARPatient ID:[id number] of :[id number]:FemaleAccession:[id number] Date:[id number] Status:Finalized Findings [place] [id number] Vascular Lab Report Signed Patient: JAKE AGUILAR MR#: [id number] : 1955 Acct:[id number] Age/Sex: 63 / F ADM Date: 06/25/19 Loc: ED Attending Dr: Ordering Physician: SANJAY FIGUEROA Date of Service: 06/25/19 Procedure(s): VL venous duplex UE LT Accession Number(s): [id number] cc: SANJAY FIGUEROA DUPLEX DOPPLER LEFT UPPER EXTREMITY VEINS INDICATION: Left arm cold, pain tingling and swelling with ten FINDINGS: Real-time, color, and spectral Doppler techniques utilized. There is no thrombus within the deep veins of the left upper extremity from the jugular vein to the forearm veins. There is normal compression and augmentation on spectral analysis. IMPRESSION: No sonographic evidence for DVT in the left upper extremity. Signer Name: Curry Dunlap MD Signed: 06/25/2019 2:27 PM Workstation Name: [id number] Transcribed By: Dictated By: Curry Dunlap MD Electronically Authenticated By: Curry Dunlap MD Signed Date/Time: 06/25/191426 DD/ 25 TD/TT: - Medical Decision Making 63-year-old -Citizen Of [place] female that is nontoxic no acute distress presents to the emergency room for a 2-month history of left arm pain tenderness feeling cold and numbness. Patient denies any injuries. Patient reported that she was seen 2 months ago for the same but was unable to follow-up. Patient states that she was seen at her [place] provider and was told that after she has her pacemaker check that then they can do further testing. Patient states that she has not been able to have her pacemaker checked secondary to coronavirus shutdown's. Patient reports that her left hand always stay cold . Patient has a past medical history of COPD asthma hypertension pacemaker surgical history of hysterectomy appendectomy pacemaker. Patient currently ambulates with a walker. Ultrasound Doppler for left upper extremity has been ordered. Ultrasounds negative for any DVT. Recommend patient to continue with her Tylenol and follow-up with her [place] provider. Critical care attestation.: If time is entered above; I have spent that time in minutes in the direct care of this critically ill patient, excluding procedure time. ED Disposition Clinical Impression: Numbness and tingling in left hand Disposition: DC-01 TO HOME OR SELFCARE Is pt being admited?: No Does the pt Need Aspirin: No Condition: Stable Instructions: Paresthesia (ED) Additional Instructions: Ultrasounds negative for any deep vein thrombosis/clot. I recommend you to follow-up with your primary care provider for further testing. Tylenol for pain. Referrals: PRIMARY CAREMD [Primary Care Provider] - 3-5 Days [facility] [Outside] - 3-5 Days
--- NOTE | 2019-06-25 14:32 | Vascular Lab Report ---
DUPLEX DOPPLER LEFT UPPER EXTREMITY VEINS INDICATION: Left arm cold, pain tingling and swelling with ten FINDINGS: Real-time, color, and spectral Doppler techniques utilized. There is no thrombus within the deep veins of the left upper extremity from the jugular vein to the f orearm veins. There is normal compression and augmentation on spectral analysis. IMPRESSION: No sonographic evidence for DVT in the left upper extremity. Signer Name: Curry Dunlap MD Signed: 06/25/2019 2:27 PM Workstation Name: [id number]
== END 2019-06-25 15:19 | disposition home or self-care (01) ==
LOC: ED 10:02
DX: R20.2 Paresthesia of skin (principal); I10 Essential (primary) hypertension; J44.9 Chronic obstructive pulmonary disease, unspecified; F17.200 Nicotine dependence, unspecified, uncomplicated; Z90.710 Acquired absence of both cervix and uterus; Z90.49 Acquired absence of other specified parts of digestive tract; Z79.82 Long term (current) use of aspirin; Z79.899 Other long term (current) drug therapy; Z88.6 Allergy status to analgesic agent

== ENCOUNTER 2019-11-05 08:44 | Emergency (ER) | payer MEDICARE ==
[2019-11-05 08:50] VITALS: BP 147/94
--- NOTE | 2019-11-05 10:02 | Emergency Department Report ---
ED ENT HPI - General Chief complaint: Earache Stated complaint: LFT SIDE EARACHE Time Seen by Provider: 11/05/19 09:51 Source: patient Mode of arrival: Ambulatory Limitations: No Limitations - History of Present Illness Initial comments: Patient is a 64-year-old female presents emergency room complaints of left ear pain that began a month ago. She states that she has a sensation of a foreign body in the ear but denies getting anything into the ear. She states that she mostly has pain when she lays on the ear. She denies any fever, ear drainage, h earing loss. She has a past medical history of COPD, asthma, hypertension, pacemaker secondary to "slow heartbeat" per patient. She has an allergy to codeine. - Related Data Home Medications Medication Instructions Recorded Confirmed Last Taken Losartan [Cozaar] 100 mg PO QDAY 12/23/16 12/23/16 12/23/16 Previous Rx's Medication Instructions Recorded Last Taken Type Acetaminophen [Tylenol Arthritis] 650 mg PO Q6HR PRN #30 tablet.er 01/25/17 Unknown Rx Albuterol Sulfate [Proair 90 mcg IH Q4HR PRN #2 aer.pow.ba 01/25/17 Unknown Rx Respiclick] Fluticasone [Flonase] 1 spray NS QDAY #1 bottle 01/25/17 Unknown Rx Ipratropium [place] [Atrovent Hfa] 12.9 gm IH Q4HR #2 hfa.aer.ad 01/25/17 Unknown Rx HYDROcodone/APAP 5-325 [[place] 1 each PO Q6HR PRN #10 tablet 05/10/17 Unknown Rx 5/325] Prednisone [predniSONE 10 mg 10 mg PO .TAPER #1 tab.ds.pk 08/16/17 Unknown Rx (6-Day Pack, 21 Tabs)] Ibuprofen [Motrin] 600 mg PO Q8H PRN #12 tablet 10/22/17 Unknown Rx cephALEXin [Keflex] 500 mg PO Q12H 7 Days #14 cap 10/22/17 Unknown Rx Benzonatate [Tessalon Perles] 100 mg PO Q8HR PRN #20 capsule 01/31/18 Unknown Rx Ibuprofen [Motrin 600 MG tab] 600 mg PO Q8H PRN #20 tablet 01/31/18 Unknown Rx predniSONE [Deltasone] 20 mg PO QDAY #5 tab 01/31/18 Unknown Rx Ibuprofen [Motrin] 800 mg PO Q8HR PRN #20 tablet 04/12/18 Unknown Rx traMADoL [Ultram] 50 mg PO Q6HR PRN #12 tablet 04/12/18 Unknown Rx Acetaminophen [Non-Aspirin Extra 500 mg PO Q6HR PRN #30 tablet 12/27/18 Unknown Rx Strength] Albuterol Sulfate [Albuterol 0.63% 0.63 mg IH Q4HR PRN #2 ml 12/27/18 Unknown Rx NEBS] Albuterol Sulfate [Proair 90 mcg IH Q4HR PRN #2 aer.pow.ba 12/27/18 Unknown Rx Respiclick] Aspirin [Aspirin BABY CHEW TAB] 81 mg PO QDAY #30 tab.chew 12/27/18 Unknown Rx Fluticasone [Flonase] 1 spray NS QDAY #1 bottle 12/27/18 Unknown Rx Ipratropium (Nf) [Atrovent] 2 puff IH Q6HR PRN #1 inha 12/27/18 Unknown Rx Nicotine Polacrilex [Nicotine Gum] 4 mg BC QDAY #30 gum 12/27/18 Unknown Rx Ofloxacin 0.3% [Floxin 0.3% Otic] 10 drops DAILY 7 Days #1 bottle 11/05/19 Unknown Rx Allergies Allergy/AdvReac Type Severity Reaction Status Date / Time codeine Allergy Hives Verified 08/23/19 12:26 ED Dental HPI - General Chief complaint: Earache Stated complaint: LFT SIDE EARACHE Time Seen by Provider: 11/05/19 09:51 Source: patient Mode of arrival: Ambulatory Limitations: No Limitations - Related Data Home Medications Medication Instructions Recorded Confirmed Last Taken Losartan [Cozaar] 100 mg PO QDAY 12/23/16 12/23/16 12/23/16 Previous Rx's Medication Instructions Recorded Last Taken Type Acetaminophen [Tylenol Arthritis] 650 mg PO Q6HR PRN #30 tablet.er 01/25/17 Unknown Rx Albuterol Sulfate [Proair 90 mcg IH Q4HR PRN #2 aer.pow.ba 01/25/17 Unknown Rx Respiclick] Fluticasone [Flonase] 1 spray NS QDAY #1 bottle 01/25/17 Unknown Rx Ipratropium [place] [Atrovent Hfa] 12.9 gm IH Q4HR #2 hfa.aer.ad 01/25/17 Unknown Rx HYDROcodone/APAP 5-325 [[place] 1 each PO Q6HR PRN #10 tablet 05/10/17 Unknown Rx 5/325] Prednisone [predniSONE 10 mg 10 mg PO .TAPER #1 tab.ds.pk 08/16/17 Unknown Rx (6-Day Pack, 21 Tabs)] Ibuprofen [Motrin] 600 mg PO Q8H PRN #12 tablet 10/22/17 Unknown Rx cephALEXin [Keflex] 500 mg PO Q12H 7 Days #14 cap 10/22/17 Unknown Rx Benzonatate [Tessalon Perles] 100 mg PO Q8HR PRN #20 capsule 01/31/18 Unknown Rx Ibuprofen [Motrin 600 MG tab] 600 mg PO Q8H PRN #20 tablet 01/31/18 Unknown Rx predniSONE [Deltasone] 20 mg PO QDAY #5 tab 01/31/18 Unknown Rx Ibuprofen [Motrin] 800 mg PO Q8HR PRN #20 tablet 04/12/18 Unknown Rx traMADoL [Ultram] 50 mg PO Q6HR PRN #12 tablet 04/12/18 Unknown Rx Acetaminophen [Non-Aspirin Extra 500 mg PO Q6HR PRN #30 tablet 12/27/18 Unknown Rx Strength] Albuterol Sulfate [Albuterol 0.63% 0.63 mg IH Q4HR PRN #2 ml 12/27/18 Unknown Rx NEBS] Albuterol Sulfate [Proair 90 mcg IH Q4HR PRN #2 aer.pow.ba 12/27/18 Unknown Rx Respiclick] Aspirin [Aspirin BABY CHEW TAB] 81 mg PO QDAY #30 tab.chew 12/27/18 Unknown Rx Fluticasone [Flonase] 1 spray NS QDAY #1 bottle 12/27/18 Unknown Rx Ipratropium (Nf) [Atrovent] 2 puff IH Q6HR PRN #1 inha 12/27/18 Unknown Rx Nicotine Polacrilex [Nicotine Gum] 4 mg BC QDAY #30 gum 12/27/18 Unknown Rx Ofloxacin 0.3% [Floxin 0.3% Otic] 10 drops DAILY 7 Days #1 bottle 11/05/19 Unknown Rx Allergies Allergy/AdvReac Type Severity Reaction Status Date / Time codeine Allergy Hives Verified 08/23/19 12:26 ED Review of Systems ROS: Stated complaint: LFT SIDE EARACHE Other details as noted in HPI Comment: All other systems reviewed and negative ED Past Medical Hx - Past Medical History Hx Hypertension: Yes Hx Asthma: Yes Hx COPD: Yes Additional medical history: pacemaker - Surgical History Hx Pacemaker: Yes Hx Appendectomy: Yes Additional Surgical History: Hysterectomy - Social History Smoking Status: Never Smoker Substance Use Type: None - Medications Home Medications: Home Medications Medication Instructions Recorded Confirmed Last Taken Type Losartan [Cozaar] 100 mg PO QDAY 12/23/16 12/23/16 12/23/16 History Acetaminophen [Tylenol Arthritis] 650 mg PO Q6HR PRN #30 tablet.er 01/25/17 Unknown Rx Albuterol Sulfate [Proair 90 mcg IH Q4HR PRN #2 aer.pow.ba 01/25/17 Unknown Rx Respiclick] Fluticasone [Flonase] 1 spray NS QDAY #1 bottle 01/25/17 Unknown Rx Ipratropium [place] [Atrovent Hfa] 12.9 gm IH Q4HR #2 hfa.aer.ad 01/25/17 Unknown Rx HYDROcodone/APAP 5-325 [[place] 1 each PO Q6HR PRN #10 tablet 05/10/17 Unknown Rx 5/325] Prednisone [predniSONE 10 mg 10 mg PO .TAPER #1 tab.ds.pk 08/16/17 Unknown Rx (6-Day Pack, 21 Tabs)] Ibuprofen [Motrin] 600 mg PO Q8H PRN #12 tablet 10/22/17 Unknown Rx cephALEXin [Keflex] 500 mg PO Q12H 7 Days #14 cap 10/22/17 Unknown Rx Benzonatate [Tessalon Perles] 100 mg PO Q8HR PRN #20 capsule 01/31/18 Unknown Rx Ibuprofen [Motrin 600 MG tab] 600 mg PO Q8H PRN #20 tablet 01/31/18 Unknown Rx predniSONE [Deltasone] 20 mg PO QDAY #5 tab 01/31/18 Unknown Rx Ibuprofen [Motrin] 800 mg PO Q8HR PRN #20 tablet 04/12/18 Unknown Rx traMADoL [Ultram] 50 mg PO Q6HR PRN #12 tablet 04/12/18 Unknown Rx Acetaminophen [Non-Aspirin Extra 500 mg PO Q6HR PRN #30 tablet 12/27/18 Unknown Rx Strength] Albuterol Sulfate [Albuterol 0.63% 0.63 mg IH Q4HR PRN #2 ml 12/27/18 Unknown Rx NEBS] Albuterol Sulfate [Proair 90 mcg IH Q4HR PRN #2 aer.pow.ba 12/27/18 Unknown Rx Respiclick] Aspirin [Aspirin BABY CHEW TAB] 81 mg PO QDAY #30 tab.chew 12/27/18 Unknown Rx Fluticasone [Flonase] 1 spray NS QDAY #1 bottle 12/27/18 Unknown Rx Ipratropium (Nf) [Atrovent] 2 puff IH Q6HR PRN #1 inha 12/27/18 Unknown Rx Nicotine Polacrilex [Nicotine Gum] 4 mg BC QDAY #30 gum 12/27/18 Unknown Rx Ofloxacin 0.3% [Floxin 0.3% Otic] 10 drops DAILY 7 Days #1 bottle 11/05/19 Unknown Rx ED Physical Exam - General Limitations: No Limitations General appearance: alert, in no apparent distress - Head Head exam: Present: atraumatic, normocephalic - Eye Eye exam: Present: normal appearance - ENT ENT exam: Present: mucous membranes moist, other (right TM and canal are normal, left TM is normal, left canal is erythematous with scaling, no TM perforation, no signs of foreign body) - Respiratory Respiratory exam: Absent: respiratory distress, accessory muscle use - Neurological Exam Neurological exam: Present: alert, oriented X3 - Psychiatric Psychiatric exam: Present: normal affect, normal mood - Skin Skin exam: Present: warm, dry, intact ED Course Vital Signs 11/05/19 08:46 Temperature 97.8 F Pulse Rate 96 H Respiratory 18 Rate Blood Pressure 147/94 Blood Pressure 147/94 [Right] O2 Sat by Pulse 100 Oximetry ED Medical Decision Making - Medical Decision Making Patient is a 64-year-old female presents emergency room complaints of left ear pain that began a month ago. She states that she has a sensation of a foreign body in the ear but denies getting anything into the ear. She states that she mostly has pain when she lays on the ear. She denies any fever, ear drainage, hearing loss. She has a past medical history of COPD, asthma, hypertension, pacemaker secondary to "slow heartbeat" per patient. She has an allergy to codeine. VSS. on exam: right TM and canal are normal, left TM is normal, left canal is erythematous with scaling, no TM perforation, no signs of foreign body. Examination appears consistent with otitis externa. No clinical signs of malignant otitis externa at this time. Patient given prescriptions for antibiotic eardrops. Patient will be referred to her primary care physician and ENT. advised pt please use medication as prescribed. Please follow-up with your primary care doctor. Please follow-up with a ear nose and throat doctor. Return to emergency room for any new or worsening symptoms. - Differential Diagnosis otitis media, otitis externa, cerumen impaction, foreign body Critical care attestation.: If time is entered above; I have spent that time in minutes in the direct care of this critically ill patient, excluding procedure time. ED Disposition Clinical Impression: Otalgia of left ear Otitis externa Qualifiers: Otitis externa type: unspecified type Chronicity: acute Laterality: left Qualified Code(s): H60.502 - Unspecified acute noninfective otitis externa, left ear Disposition: DC- TO HOME OR SELFCARE Is pt being admited?: No Does the pt Need Aspirin: No Condition: Stable Instructions: Otitis Externa (ED), Earache (ED) Additional Instructions: Please use medication as prescribed. Please follow-up with your primary care doctor. Please follow-up with a ear nose and throat doctor. Return to emergency room for any new or worsening symptoms. Prescriptions: Ofloxacin 0.3% [Floxin 0.3% Otic] 10 drops DAILY 7 Days #1 bottle Referrals: JAZZY HICKEY MD [Staff Physician] - 2-3 Days [facility] [Provider Group] - 2-3 Days [facility] [Provider Group] - 2-3 Days [facility] [Provider Group] - 2-3 Days Time of Disposition: 10:00 Print Language: MONTSERRAT[place]
== END 2019-11-05 10:14 | disposition home or self-care (01) ==
LOC: ED 08:44
DX: H60.92 Unspecified otitis externa, left ear (principal); H92.02 Otalgia, left ear; I10 Essential (primary) hypertension; J44.9 Chronic obstructive pulmonary disease, unspecified; Z90.49 Acquired absence of other specified parts of digestive tract; Z98.890 Other specified postprocedural states; Z90.710 Acquired absence of both cervix and uterus; Z79.1 Long term (current) use of non-steroidal anti-inflammatories (NSAID); Z79.899 Other long term (current) drug therapy; Z88.8 Allergy status to other drugs, medicaments and biological substances
CPT/HCPCS: 99282